=== PATIENT | female | born 1930 | race Caucasian/White ===

== ENCOUNTER 2016-11-26 10:15 | Inpatient (IN) ==
--- NOTE | 2016-11-26 08:09 | Discharge Summary ---
<Sancho,Nhi E - Last Filed: 11/26/16 10:06> Date of Encounter: 11/26/16 - Discharge Diagnosis (1) Arthritis of right hip Priority: Primary Status: Acute (2) Hyperlipidemia Priority: Secondary Status: Acute Qualifiers: Hyperlipidemia type: unspecified Qualified Code(s): E78.5 - Hyperlipidemia , unspecified - Discharge Medications Home Medications: Acetaminophen [Tylenol] 325 mg PO Q6HR PRN 11/26/16 [History] Aspirin Enteric Coated [Aspirin EC] 325 mg PO DAILY #21 tablet.dr 11/26/16 [Rx] Calcium Carbonate [Calcium] 600 mg PO DAILY 11/26/16 [History] Docusate Sodium [Colace] 100 mg PO DAILY PRN 11/26/16 [History] Lactobacillus Combination No.8 [Adult Probiotic] 1 cap PO DAILY 11/26/16 [ History] OxyCODONE Immed Rel [Roxicodone 5 MG] 5 - 10 mg PO Q6HR PRN #40 tablet 11/26/16 [Rx] Ubidecarenone/Vit E Acetate [Co Q-10 100 mg Softgel] 1 each PO DAILY 11/26/16 [ History] Vitamin E Acid Succinate [Vitamin E] 400 units PO DAILY 11/26/16 [History] Allergies/Adverse Reactions: Allergies Penicillins [PCN] Allergy (Verified 08/30/16 15:01) Rash Tetanus Vaccines and Toxoid Allergy (Verified 08/30/16 15:01) Anaphylaxis Primary care physician: Patrick Clarke Jr, MD - Patient Status Disposition: Transfer Inpatient Rehab Fac Condition: Good - Discharge Instructions Follow Up With: Santos Jefferson MD [Partnered Physician] - 12/26/16 5:20 pm Kristi Robison PAC [Physician Dock Associate] - 12/06/16 9:00 am Patrick Clarke Jr, MD [Primary Care Provider] - - Hospital Course Hospital course: Ms. Biggs is a 86 year old female - Time Spent with Patient Total time spent providing and/or coordinating discharge services: <Kristi Robison - Last Filed: 11/26/16 11:56> Date of Encounter: 11/26/16 - Discharge Diagnosis (1) Arthritis of right hip Status: Acute Primary care physician: Patrick Clarke Jr, MD - Hospital Course Hospital course: Ms. Biggs is a 86 year old female - Time Spent with Patient Total time spent providing and/or coordinating discharge services: <Santos Jefferson Ji - Last Filed: 11/29/16 07:56> Date of Encounter: 11/29/16 Time of Encounter: 07:53 - Discharge Diagnosis (1) Arthritis of right hip Priority: Primary Status: Acute (2) Hyperlipidemia Priority: Secondary Status: Chronic Qualifiers: Hyperlipidemia type: unspecified Qualified Code(s): E78.5 - Hyperlipidemia , unspecified (3) Acute blood loss anemia Priority: Primary Status: Acute (4) Atrial fibrillation with rapid ventricular response Priority: Primary Status: Acute Primary care physician: Patrick Clarke Jr, MD - Patient Status Functional capacity at discharge: uses cane/walker Overall status at discharge: patient is progressing back to baseline - Hospital Course Hospital course: Ms. Biggs is a 86 year old female The patient had a postoperative course complicated by new onset atrial fibrillation with RVR, patient responded to cardizem drip and is now on Cardizem by mouth.. They received antibiotics and physical therapy and were discharged in stable condition. There will follow-up in the office in 2 weeks. Aspirin DVT prophylaxis. - Time Spent with Patient Total time spent providing and/or coordinating discharge services:
[2016-11-26] MEDS ORDERED: Clindamycin 900 MG/50 ML 900 MG/50 ML IV.SOLN IVPB ONE (10:39)
[2016-11-26] MEDS ORDERED: Lidocaine -MPF 1% 2 ML VIAL ID ONE (10:39)
[2016-11-26] MEDS ORDERED: Ringers Solution, Lactated 1,000 ML IVC SCH (10:45)
--- NOTE | 2016-11-26 11:05 | Anesthesia Evaluation PreOp ---
Date of Encounter: 11/26/16 Time of Encounter: 11:02 - Past History Planned Operation: r lakeisha Cardiac History: Hyperlipidemia Pulmonary History: Denies Any Significant HX FASHION ILLUSTRATOR History: Denies Any Significant HX Other Medical History: Thyroid (goiter) Anesthesia History: No Prior Anesthetic Complications, Past Anesthesia ( cholecyst) Alcohol Use: none Drug use: none Medications and Allergies Acetaminophen [Tylenol] 325 mg PO Q6HR PRN 11/26/16 [History] Aspirin Enteric Coated [Aspirin EC] 325 mg PO DAILY #21 tablet.dr 11/26/16 [Rx] Aspirin [Lo-Dose Aspirin EC] 81 mg PO DAILY 11/26/16 [History] Calcium Carbonate [Calcium] 600 mg PO DAILY 11/26/16 [History] Docusate Sodium [Colace] 100 mg PO DAILY PRN 11/26/16 [History] Lactobacillus Combination No.8 [Adult Probiotic] 1 cap PO DAILY 11/26/16 [ History] OxyCODONE Immed Rel [Roxicodone 5 MG] 5 - 10 mg PO Q6HR PRN #40 tablet 11/26/16 [Rx] Ubidecarenone/Vit E Acetate [Co Q-10 100 mg Softgel] 1 each PO DAILY 11/26/16 [ History] Vitamin E Acid Succinate [Vitamin E] 400 units PO DAILY 11/26/16 [History] Allergies Penicillins [PCN] Allergy (Verified 08/30/16 15:01) Rash Tetanus Vaccines and Toxoid Allergy (Verified 08/30/16 15:01) Anaphylaxis - Meds/Allergy Pre-op Review Medications Reviewed: Yes Allergies Reviewed: Yes Beta Blockers on Current Med List: No Anesthesia Results - Labs Laboratory Tests 11/12/16 11/12/16 11/12/16 15:16 15:16 15:16 Hgb 13.3 Hct 41.9 Plt Count 201 PT 10.5 INR 1.0 APTT 27.5 Sodium 140 Potassium 4.2 Creatinine 0.90 - Imaging EKG: pending Anesthesia Exam Vital Signs/O2 Sat/Glucose, Most Current Temp Pulse Resp BP Pulse Ox 11/26/16 10:46 98.4 F 81 18 155/90 97 O2 Sat Height 1.57 m Height 1.57 m Height 1.57 m Weight 78.018 kg Weight 78.018 kg Weight 78.018 kg O2 Sat by Pulse Oximetry 97 Vital Signs Temp Pulse Resp BP Pulse Ox 98.4 F 81 18 155/90 97 11/26/16 10:46 11/26/16 10:46 11/26/16 10:46 11/26/16 10:46 11/26/16 10:46 Height: 1.57 Weight: 78 NPO (# of Hours): >8 - HEENT Pupil (Motor): Pupils equal, EOMI Mallampati: II Teeth: Edentulous, Poor dentition Oral Opening: Greater than 3 - FASHION ILLUSTRATOR LOC: Oriented FASHION ILLUSTRATOR Motor: Normal RUE, Normal LUE, Normal RLE, Normal LLE, Normal Face FASHION ILLUSTRATOR Sensory: Normal: RUE, LUE, RLE, LLE, Face - Cardiac Rhythm: Regular Murmur: None - Pulmonary Breath Sounds: bilateral Clear Respiratory Effort: Symmetrical Anesthesia Assess/Plan ASA Score: 3 Modified Lolita Scale for Level of Consciousness: Cooperative, oriented, and tranquil Anesthetic Plan: General Monitoring Plan: Standard Monitors Recovery Plan: PACU
[2016-11-26] MEDS ORDERED: *HR* Midazolam HCl 2 MG/2 ML VIAL ONE (11:36)
[2016-11-26] MEDS ORDERED: *HR* FentaNYL (PF) 100 MCG/2 ML VIAL ONE (11:36)
[2016-11-26] MEDS ORDERED: *HR* Propofol 200 MG/20 ML VIAL IVP ONE (11:36)
[2016-11-26] MEDS ORDERED: Lidocaine -MPF 2% 2 ML VIAL ONE (11:38)
[2016-11-26] MEDS ORDERED: Ondansetron 4 MG/2 ML VIAL ONE (11:38)
[2016-11-26] MEDS ORDERED: Dexamethasone 4 MG/ML VIAL ONE (11:38)
[2016-11-26] MEDS ORDERED: *HR* HYDROmorphone (PF) 1 MG/ML SYRINGE IVP PRN ×2 (11:41→14:47)
[2016-11-26] MEDS ORDERED: Ondansetron 4 MG/2 ML VIAL IVP PRN ×2 (11:41→14:47)
[2016-11-26] MEDS ORDERED: *HR* Succinylcholine 200 MG/10 ML VIAL IVP ONE (11:43)
--- NOTE | 2016-11-26 12:15 | History & Physical Report ---
Date of Encounter: 11/26/16 Time of Encounter: 12:15 24 Hour HP Update - Instructions Instructions: If the History and Physical is less than 30 days old and was completed prior to A.M. admission and or procedure and has NOT been updated on calendar day of procedure please complete this update prior to performing procedure. - Update Patient reports changes in Medical Condition: No Changes in examination, assessment, or condition: No Changes in Medication: No Preop tests/diagnostics Reviewed: Yes Surgery Remains Indicated: Yes Consent for Planned Operative Procedure(s) Verified: Yes - Pre-Operative Checklist Preoperative Checklist Indicated: No Prophylactic Antibiotic Ordered: Yes Is VTE Prophylaxis Indicated?: Yes
--- NOTE | 2016-11-26 13:43 | Orthopedic Operative Note ---
Date of procedure: 11/26/16 Pre-op diagnosis: right hip OA Post-op diagnosis: same Procedure: Procedure: right Total Hip Replacment Estimated blood loss: 200 cc Hardware: Biomet DM Cup: 54 G7 fin cup Femoral size 12 echo full profile lateralized stem Head: +3 head with Lesvia Procedural Notes: Grade 4 arthritic changes femoral head acetabular socket Operative procedure: The patient was brought to the operating room and placed on the operating room table. After general anesthesia was administered the patient was placed in the lateral decubitus position with the operative leg up. All pressure points were padded appropriately and the head was stabilized in the neutral position. The operative extremity was prepped and draped in the sterile surgical fashion patient received IV antibiotic prior to skin incision. A standard posterior approach is made to the operative hip, the incision was made through the skin and subcutaneous tissue hemostasis was obtained with Bovie cautery. Using careful sharp dissection the fascia was identified and incised exposing the external rotators. The external rotators were released off the greater trochanter and tagged with #2 FiberWire suture. The capsule was T'd open and the hip was brought into internal rotation. Patient noted to have grade 4 arthritic changes femoral head. The femoral neck cut was made at the appropriate level. An anterior capsulotomy was performed for the anterior retractor. Soft tissues removed from the acetabulum. Patient noted to have grade 4 arthritic changes acetabulum. Acetabulum was first reamed medially, and then reamed in 15 degrees of anteversion and 45 degrees off the horizontal. It was reamed up to the appropriate size 54. The appropriate-sized 54 acetabular cup was impacted in place in 15 degrees of anteversion and 45 degrees off the horizontal. This had good fit and fixation. The hip was brought back in to internal rotation and prepared with the box attacher followed by the canal finder followed by broaching process in 20 degrees anteversion. It was broached up to the appropriate size 12. The femoral implant was impacted in place in 20 degrees of anteversion. Trial reduction found the hip to be stable with +3 head and Lesvia. The trials were removed and the real implants were impacted in place. The hip was reduced, patient had apparent equal leg lengths. The hip had excellent stability with forward flexion to 90 degrees adduction of 30 degrees and internal rotation of 60 degrees. The hip had no shuck. The hips after 2 minutes with a Betadine saline solution. It was irrigated out with 2 L of pulse irrigation. The external rotators were reattached to drill holes in the greater trochanter. Fascia was closed with a running #2 PDS suture. The deep tissue was irrigated and closed deep with #1 PDS suture superficially with 0 PDS suture and skin was closed with Dermabond and skin kaylynn. The patient was placed in a sterile dressing and abduction pillow. The patient was extubated and transferred to the recovery room in stable condition. Anesthesia: GEOFFREY Surgeon: Santos Jefferson Quality Engineering Manager: Kristi Robison Condition: stable Disposition: PACU
[2016-11-26] MEDS ORDERED: *HR* HYDROmorphone (PF) 1 MG/ML SYRINGE ONE (14:12)
[2016-11-26] MEDS ORDERED: *HR* OxyCODONE Immed Rel 5 MG TABLET PO PRN (14:47)
[2016-11-26] MEDS ORDERED: Sennosides 8.6 MG TABLET PO PRN (14:47)
[2016-11-26] MEDS ORDERED: MOM Conc 10 ML UD.LIQ PO PRN (14:47)
[2016-11-26] MEDS ORDERED: Temazepam 15 MG CAPSULE PO PRN (14:47)
[2016-11-26] MEDS ORDERED: Naloxone 0.4 MG/ML INJ IVP PRN (14:47)
--- NOTE | 2016-11-26 15:05 | Anesthesia Evaluation Post Op ---
Date of Encounter: 11/26/16 Time of Encounter: 14:45 - Vital Signs Vital Signs: Vital Signs/O2 Sat/Glucose, Most Current Temp Pulse Resp BP Pulse Ox 11/26/16 14:57 97.7 F 67 14 160/80 97 11/26/16 14:52 97.1 F L 67 16 154/78 99 11/26/16 14:42 64 16 154/84 99 11/26/16 14:32 97.3 F L 81 16 144/87 100 11/26/16 14:22 77 16 145/90 99 11/26/16 14:12 65 16 141/92 98 11/26/16 14:02 97.0 F L 64 16 130/83 99 - Lungs Lungs: Clear Ascult./Percussion - Airway Airway: Non-obstructed - Cardiovascular Regular Rate - Mental Status Mental Status: Alert & Oriented, Answers Appropriately - Pain Pain Scale: 5 Pain Scale used: Numeric (1 - 10) - Nausea Vomiting Nausea Vomiting: Not Present - Hydration Hydration: Ice chips, Has not voided - Discharge PostOp Status: Transfer Patient to floor Anes Supervising Prov Stmt: Pt seen/evaluated, vSS and pt has met criteria for discharge to home. - MD Barry
[2016-11-26 15:13] LABS: Hematocrit 34.2 % (35.3-44.9); Hemoglobin 11.4 g/dL (11.5-15.4)
[2016-11-26] MEDS: *HR* OxyCODONE Immed Rel 5 MG TABLET PO PRN (15:22)
[2016-11-26] MEDS: Ringers Solution, Lactated 1,000 ML IVC SCH (15:22)
[2016-11-26] MEDS: Ascorbic Acid 500 MG TABLET PO SCH (16:53)
[2016-11-26] MEDS ORDERED: *HR* Enoxaparin 30 MG/0.3 ML SYRINGE SQ SCH (18:00)
[2016-11-26] MEDS: Clindamycin 900 MG/50 ML 900 MG/50 ML IV.SOLN IVPB SCH ×2 (18:17→23:07)
[2016-11-26] MEDS: *HR* Enoxaparin 30 MG/0.3 ML SYRINGE SQ SCH (18:18)
[2016-11-27] MEDS: Ringers Solution, Lactated 1,000 ML IVC SCH (03:05)
[2016-11-27] MEDS: *HR* OxyCODONE Immed Rel 5 MG TABLET PO PRN ×4 (03:14→17:07)
[2016-11-27] MEDS: *HR* Enoxaparin 30 MG/0.3 ML SYRINGE SQ SCH ×2 (05:09→17:07)
[2016-11-27 05:45] LABS: Hematocrit 29.8 % (35.3-44.9)
[2016-11-27 05:49] LABS: Hemoglobin 9.7 g/dL (11.5-15.4)
[2016-11-27 06:00] LABS: BUN/Creatinine Ratio 14 (6-26); Blood Urea Nitrogen 14 mg/dL (7-20); Calcium 7.9 mg/dL (8.6-10.8); Carbon Dioxide 25 mEq/L (19-29); Chloride 105 mEq/L (98-109); Glucose 119 mg/dL (70-99); Osmolality,Calculated 288 (280-300); Potassium 3.7 mEq/L (3.5-4.5); Sodium 138 mEq/L (136-145); eGFR For African Americans > 60 (> 60); eGFR For Non-African Americans 55 (> 60)
--- NOTE | 2016-11-27 06:35 | Electrocardiograph Report ---
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
--- NOTE | 2016-11-27 06:44 | Orthopedics Progress Note ---
Date of Encounter: 11/27/16 Time of Encounter: 06:44 - Assessment and Plan (1) Arthritis of right hip Current Visit: Yes Status: Acute (2) Hyperlipidemia Current Visit: Yes Status: Chronic Qualifiers: Hyperlipidemia type: unspecified Qualified Code(s): E78.5 - Hyperlipidemia , unspecified (3) Acute blood loss anemia Current Visit: Yes Status: Acute Subjective Interval history: Patient was seen this morning doing well without complaints. Afebrile vital signs stable. Operative extremity: Neurovascularly intact Dressing clean dry and intact Calves nontender Assessment and plan: Continue with postoperative care Hematocrit 29 Objective Vital signs: Vital Signs Temp Pulse Resp BP Pulse Ox 11/27/16 04:49 98.0 F 70 16 118/80 99 11/26/16 23:43 98.4 F 73 16 118/83 99 11/26/16 19:21 98.2 F 72 16 119/77 99 11/26/16 18:10 98.6 F 96 16 107/74 98 11/26/16 17:34 87 16 146/89 99 11/26/16 16:53 98.2 F 87 16 146/89 99 11/26/16 16:08 98.5 F 70 16 154/79 93 11/26/16 15:31 98.5 F 72 16 153/78 96 11/26/16 14:57 97.7 F 67 14 160/80 97 11/26/16 14:52 97.1 F L 67 16 154/78 99 11/26/16 14:42 64 16 154/84 99 11/26/16 14:32 97.3 F L 81 16 144/87 100 11/26/16 14:22 77 16 145/90 99 11/26/16 14:12 65 16 141/92 98 11/26/16 14:02 97.0 F L 64 16 130/83 99 11/26/16 10:46 98.4 F 81 18 155/90 97 Intake and Output 11/26/16 11/26/16 11/27/16 15:59 23:59 07:59 Intake Total 590 / 590 300 / 300 Output Total 300 / 300 450 / 450 Balance -300 / -300 140 / 140 300 / 300 Intake: IV Fluids 50 / 50 50 / 50 Cleocin 900 MG/50 ML 900 50 / 50 50 / 50 mg In 50 ml @ 50 mls/hr IVPB Q8HR KAREN Rx#: [id number] Oral 540 / 540 250 / 250 Output: Urine 450 / 450 Estimated Blood Loss 300 / 300 Other: Meal Dinner Percent of Meal Consumed 80% # Voids 1 Weight 78.018 kg - Labs CBC & BMP: 11/27/16 05:15 11/27/16 05:15 Labs: Abnormal lab results Hgb 9.7 g/dL (11.5-15.4) L D 11/27/16 05:15 Hct 29.8 % (35.3-44.9) L 11/27/16 05:15 Est GFR (Non-Af Amer) 55 (> 60) L 11/27/16 05:15 Glucose 119 mg/dL (70-99) H 11/27/16 05:15 Calcium 7.9 mg/dL (8.6-10.8) L 11/27/16 05:15 - VTE Documentation of Mechanical Device: Venous foot pump, device Consult Discharge Plan - Plan Referrals: Patrick Clarke Jr, MD [Primary Care Provider] -
[2016-11-27] MEDS: Ascorbic Acid 500 MG TABLET PO SCH ×2 (09:00→17:07)
[2016-11-27] MEDS: Multivit/Ca/Min/Fe/FA 1 TAB TABLET PO SCH (09:00)
[2016-11-27] MEDS: Lactobacillus 1 EACH CAP.SPRINK PO SCH (09:01)
--- NOTE | 2016-11-28 02:24 | Internal Medicine Consult Note ---
Date of Encounter: 11/28/16 Time of Encounter: 01:00 - Assessment and Plan (1) Atrial fibrillation with rapid ventricular response Current Visit: Yes Status: Acute Assessment and plan: Patient has tachycardia with heart rate to 170s. traffic monitor specialist and EKG shows A. fib with rapid ventricular response. - New onset A. fib, no significant history of heart disease. - BP is acceptable. We will start Cardizem 10 milligrams bolus followed by Cardizem drip. Titrate to control heart rate lower than 100. - Vitals every 15 minutes, continuous cardiac monitoring. - CHADS2-VASC score 3 (Age 3, female 1), will place aspirin for now. Cardio consult for further management. - Check TSH and magnesium. - Cardiac consult for new onset A. fib. Patient is at high risk because she is on Cardizem drip, need close monitoring (2) DVT prophylaxis Current Visit: Yes Status: Acute Assessment and plan: On lovenox sc per orthopedic (3) Arthritis of right hip Current Visit: Yes Status: Acute Assessment and plan: Had hip replacement. (4) Hyperlipidemia Current Visit: Yes Status: Chronic Assessment and plan: On Diet control Qualifiers: Hyperlipidemia type: unspecified Qualified Code(s): E78.5 - Hyperlipidemia , unspecified (5) Acute blood loss anemia Current Visit: Yes Status: Acute Assessment and plan: On iron pills. Internal Medicine - CN: HPI - Data of Consult Patient: new to practice Consult date: 11/28/16 Requesting Physician: Santos Jefferson MD - Consult Narrative Reason for consult: Tachycardia History of present illness: Ms. Biggs is a 86 year old female admitted for arthritis for right hip replacement. Patient had a surgery by orthopedic on Saturday. Internal medicine consult was called because patient developed tachycardia tonight. Patient was seen and examined at bedside. She denies palpitation, chest pain, shortness of breath. She has no nausea or vomiting. Reviewed the cardiac tech and EKG shows A. fib with rapid ventricular response. Patient has no history of A. fib before. She denies history of hypertension, diabetes, CAD, CVA, or TIA. She takes only baby aspirin and vitamins at home. Past Med Surg Social Fam HX - Past Medical History Medical history: non-contributory, hyperlipidemia Psychiatric history: no psych history - Past Surgical History Surgical History: cholecystectomy - Social History Smoking Status: Former smoker Smokeless Tobacco Status: No Alcohol use: none Drug use: none Internal Medicine - CN: Meds Acetaminophen [Tylenol] 325 mg PO Q6HR PRN 11/26/16 [History] Aspirin Enteric Coated [Aspirin EC] 325 mg PO DAILY #21 tablet. 11/26/16 [Rx] Calcium Carbonate [Calcium] 600 mg PO DAILY 11/26/16 [History] Docusate Sodium [Colace] 100 mg PO DAILY PRN 11/26/16 [History] Lactobacillus Combination No.8 [Adult Probiotic] 1 cap PO DAILY 11/26/16 [ History] OxyCODONE Immed Rel [Roxicodone 5 MG] 5 - 10 mg PO Q6HR PRN #40 tablet 11/26/16 [Rx] Ubidecarenone/Vit E Acetate [Co Q-10 100 mg Softgel] 1 each PO DAILY 11/26/16 [ History] Vitamin E Acid Succinate [Vitamin E] 400 units PO DAILY 11/26/16 [History] Allergies Penicillins [PCN] Allergy (Verified 08/30/16 15:01) Rash Tetanus Vaccines and Toxoid Allergy (Verified 08/30/16 15:01) Anaphylaxis Internal Medicine - CN: Exam - Constitutional Vitals: Temp Pulse Resp BP Pulse Ox 100.6 F H 122 16 76/52 99 11/28/16 02:15 11/28/16 02:15 11/28/16 02:15 11/28/16 02:15 11/28/16 02:15 General appearance IM: Present: A&O X 3, no acute distress, answers questions appropriately - Head Head exam: Present: atraumatic, normocephalic - Eye Eye exam: Present: EOMI, PERRL - Neck Neck exam general surgery: Present: full ROM, supple - Respiratory Respiratory exam: Present: CTAB - Cardiovascular Cardiovascular exam IM: Present: irregular rhythm, tachycardia - GI/Abdominal GI/Abdominal exam IM: Present: soft. Absent: tenderness - Extremities Exam Extremities exam IM: Absent: pedal edema - Neurological Exam Neurological exam: Present: alert, altered, oriented X3. Absent: no focal deficits Internal Medicine - CN: Reslt - Labs CBC & Chem 7: 11/27/16 05:15 11/27/16 05:15 Labs: Short CBC 11/27/16 Range/Units 05:15 Hgb 9.7 L D (11.5-15.4) g/dL Hct 29.8 L (35.3-44.9) % BMP 11/27/16 05:15 Sodium 138 Potassium 3.7 Chloride 105 Carbon Dioxide 25 BUN 14 Creatinine 0.97 Glucose 119 H Calcium 7.9 L Consult Discharge Plan - Plan Referrals: Patrick Clarke Jr, MD [Primary Care Provider] -
[2016-11-28] MEDS ORDERED: 0.9 % Sodium Chloride 500 ML IVC ONE (02:39)
[2016-11-28 04:05] LABS: Eosinophils % 0.3 %; Hematocrit 26.5 % (35.3-44.9); Hemoglobin 8.5 g/dL (11.5-15.4); Immature Granulocytes % 0.5 % (0-4); Lymphocytes # 1.7 K/mcL (0.6-4.6); Lymphocytes % 25.8 %; Mean Corpuscular HGB Conc 32.1 g/dL (31.6-35.5); Mean Corpuscular Hemoglobin 30.9 pg (28.0-33.3); Mean Corpuscular Volume 96.4 fL (83.0-100.0); Mean Platelet Volume 9.4 fL (9.4-12.4); Monocytes # 0.8 K/mcL (0.0-1.3); Monocytes % 12.1 %; Platelet Count 147 K/mcL (140-400); Red Blood Count 2.75 M/mcL (3.82-4.97); Red Cell Distribution Width 13.8 % (11.5-14.5); Segmented Neutrophils % 61.3 %
[2016-11-28 04:15] LABS: Calcium 8.1 mg/dL (8.6-10.8); Magnesium 1.4 mg/dL (1.6-2.6); Potassium 3.4 mEq/L (3.5-4.5)
[2016-11-28 04:37] LABS: Thyroid Stimulating Hormone 0.749 mcIU/mL (0.350-4.840)
[2016-11-28] MEDS: *HR* Enoxaparin 30 MG/0.3 ML SYRINGE SQ SCH ×2 (05:01→17:18)
[2016-11-28] MEDS ORDERED: Furosemide 20 MG/2 ML VIAL IVP ONE (05:59)
[2016-11-28] MEDS: Lactobacillus 1 EACH CAP.SPRINK PO SCH (07:32)
[2016-11-28] MEDS: Ascorbic Acid 500 MG TABLET PO SCH ×2 (07:32→17:18)
[2016-11-28] MEDS: Aspirin Enteric Coated 81 MG Tablet PO SCH (07:33)
[2016-11-28] MEDS: Multivit/Ca/Min/Fe/FA 1 TAB TABLET PO SCH (07:33)
--- NOTE | 2016-11-28 07:59 | Orthopedics Progress Note ---
Date of Encounter: 11/28/16 Time of Encounter: 07:58 - Assessment and Plan (1) Arthritis of right hip Current Visit: Yes Status: Acute (2) Hyperlipidemia Current Visit: Yes Status: Chronic Qualifiers: Hyperlipidemia type: unspecified Qualified Code(s): E78.5 - Hyperlipidemia , unspecified (3) Acute blood loss anemia Current Visit: Yes Status: Acute (4) Atrial fibrillation with rapid ventricular response Current Visit: Yes Status: Acute Subjective Interval history: Patient was seen this morning doing well without complaints. Patient with atrial fibrillation and RVR overnight asymptomatic being treated by medical team Afebrile vital signs stable. Operative extremity: Neurovascularly intact Dressing clean dry and intact Calves nontender Assessment and plan: Continue with postoperative care Hematocrit 26 transfuse 2 units Objective Vital signs: Vital Signs Temp Pulse Resp BP Pulse Ox 11/28/16 07:45 120 13 105/70 94 11/28/16 07:30 129 11 93/65 94 11/28/16 07:15 99.1 F 105 10 95/64 95 11/28/16 07:00 99.9 F H 108 14 104/68 96 11/28/16 06:45 99.9 F H 112 14 103/68 95 11/28/16 06:30 99.4 F 130 12 93/66 97 11/28/16 06:15 99.4 F 116 14 95/70 96 11/28/16 06:00 99.3 F 123 14 100/62 98 11/28/16 05:53 96 11/28/16 05:45 100 F H 117 15 95/59 96 11/28/16 05:30 100.2 F H 125 14 106/67 97 11/28/16 05:15 100.2 F H 131 14 103/66 96 11/28/16 04:57 100.1 F H 111 14 104/68 97 11/28/16 04:45 100.1 F H 115 15 96/62 97 11/28/16 04:30 100 F H 108 14 97/65 96 11/28/16 04:15 99.9 F H 104 14 101/63 96 11/28/16 04:00 100 F H 134 14 98/60 95 11/28/16 03:45 100 F H 124 15 96/62 96 11/28/16 03:30 99.8 F H 139 16 94/59 95 11/28/16 03:15 99.5 F 120 15 94/62 95 11/28/16 03:00 100.5 F H 125 16 89/55 98 11/28/16 02:45 100.4 F H 133 14 91/59 94 11/28/16 02:30 100.5 F H 141 15 96/63 97 11/28/16 02:15 100.6 F H 122 16 76/52 99 11/28/16 02:00 100.6 F H 142 14 96/61 94 11/28/16 01:45 101 F H 135 16 86/55 94 11/28/16 00:34 100.2 F H 16 123/66 92 11/27/16 20:00 97/67 11/27/16 19:18 98.8 F 88 15 94/56 93 11/27/16 19:00 93 11/27/16 14:55 98.1 F 80 16 104/68 93 11/27/16 11:30 98.0 F 76 16 99/64 95 Intake and Output 11/27/16 11/27/16 11/28/16 15:59 23:59 07:59 Intake Total 200 / 200 700 / 700 244.2 / 244.2 Balance 200 / 200 700 / 700 244.2 / 244.2 Intake: IV Fluids 4.2 / 4.2 Cardizem 125 MG In 4.2 / 4.2 Dextrose 5% 100 ML @ 5 MG /HR 5 mls/hr IVC .Q24H [facility] Rx#:[id number] Oral 200 / 200 700 / 700 240 / 240 Other: Meal Breakfast Dinner Percent of Meal Consumed 50% 100% - Labs CBC & BMP: 11/28/16 03:47 11/28/16 03:47 Labs: Abnormal lab results RBC 2.75 M/mcL (3.82-4.97) L 11/28/16 03:47 Hgb 8.5 g/dL (11.5-15.4) L 11/28/16 03:47 Hct 26.5 % (35.3-44.9) L 11/28/16 03:47 Sodium 134 mEq/L (136-145) L 11/28/16 03:47 Potassium 3.4 mEq/L (3.5-4.5) L 11/28/16 03:47 BUN 21 mg/dL (7-20) H 11/28/16 03:47 Creatinine 1.39 mg/dL (0.57-1.11) H 11/28/16 03:47 Est GFR ( Amer) 44 (> 60) L 11/28/16 03:47 Est GFR (Non-Af Amer) 36 (> 60) L 11/28/16 03:47 Glucose 128 mg/dL (70-99) H 11/28/16 03:47 Calcium 8.1 mg/dL (8.6-10.8) L 11/28/16 03:47 Magnesium 1.4 mg/dL (1.6-2.6) L 11/28/16 03:47 - VTE Documentation of Mechanical Device: Venous foot pump, device Consult Discharge Plan - Plan Referrals: Patrick Clarke Jr, MD [Primary Care Provider] -
[2016-11-28] MEDS ORDERED: Potassium Chloride Elixir 20 MEQ/15 ML UDC PO ONE (08:15)
[2016-11-28] MEDS ORDERED: Magnesium Sulfate 2 GM in D5% in Water 100 ML IVPB ONE (08:15)
[2016-11-28] MEDS ORDERED: 0.9 % Sodium Chloride 1,000 ML IVC SCH (08:15)
--- NOTE | 2016-11-28 09:46 | Cardiology Consult Note ---
<Hilario Franco Dorothy - Last Filed: 11/28/16 12:33> Date of Encounter: 11/28/16 Time of Encounter: 09:45 Assessment and Plan (1) Acute blood loss anemia Current Visit: Yes Status: Acute Hgb of 8.5 this AM after surgery 2 days ago Patient is being transfused at this time by primary team (2) Atrial fibrillation with rapid ventricular response Current Visit: Yes Status: Acute New onset Afib RVR at approx midnight on morning of 11/28 in the setting of acute blood loss anemia and fever and mild electrolyte abnormalities Patient BP unable to tolerate cardizem at rate of 5mg/hr BP initially unable to tolerate cardizem drip, oral metoprolol 12.5 given. Potassium level mildly decreased and is being supplemented Magnesium level of 1.4 and supplementation is ordered [id number] score of 3 (age +2, sex +1), no current anticoagulation due to recent surgery Echocardiogram has been ordered Will give further recommendations after echo As the patient's BP is unable to tolerate cardizem, recommend lopressor IV PRN, will place orders with parameters Discussion w patient/family: The assessment and plan as outlined above was discussed with the patient and/or family members who expressed understanding and agreement. All questions were answered. Thank you for involving us in the care of your patient. Please call with any questions. History of Present Illness Consult date: 11/28/16 Consult reason: Afib RVR Chief complaint: No patient complaints History of present illness: Ms. Biggs is a 86 year old female who had a total hip replacement on Saturday. Last night at about midnight she developed a fever with tachycardia and was found to be in a-fib RVR. The patient was asymptomatic during this. Her BP did fall into the 80's at times. She was initially started on a cardizem drip and was rate controlled but her BP began to fall and was 87/55 so the cardizem drip at 5mg/hr was held and she was given metoprolol 12.5 PO once. She denies having and CP, dyspnea, or dizziness. She was been getting up with physical therapy (but has not yet today). She denies any cardiac history and denies any heart caths. She has been progressively anemic post operatively. She denies having any symptoms. Past Med Surg Social Fam HX - Past Medical History Medical history: non-contributory, hyperlipidemia Psychiatric history: no psych history - Past Surgical History Surgical History: cholecystectomy - Social History Smoking Status: Former smoker Smokeless Tobacco Status: No Alcohol use: none Drug use: none Medications and Allergies Acetaminophen [Tylenol] 325 mg PO Q6HR PRN 11/26/16 [History] Aspirin Enteric Coated [Aspirin EC] 325 mg PO DAILY #21 tablet.dr 11/26/16 [Rx] Calcium Carbonate [Calcium] 600 mg PO DAILY 11/26/16 [History] Docusate Sodium [Colace] 100 mg PO DAILY PRN 11/26/16 [History] Lactobacillus Combination No.8 [Adult Probiotic] 1 cap PO DAILY 11/26/16 [ History] OxyCODONE Immed Rel [Roxicodone 5 MG] 5 - 10 mg PO Q6HR PRN #40 tablet 11/26/16 [Rx] Ubidecarenone/Vit E Acetate [Co Q-10 100 mg Softgel] 1 each PO DAILY 11/26/16 [ History] Vitamin E Acid Succinate [Vitamin E] 400 units PO DAILY 11/26/16 [History] Allergies Penicillins [PCN] Allergy (Verified 08/30/16 15:01) Rash Tetanus Vaccines and Toxoid Allergy (Verified 08/30/16 15:01) Anaphylaxis All Systems Review: A 10-system review of systems was performed and is negative for pertinent findings except as documented above in the HPI. - Constitutional Constitutional: no weakness - EENT Eyes: no loss of vision - Cardiovascular Cardiovascular: no chest pain at rest, no chest pain with exertion, no syncope - Respiratory Respiratory: no cough - Gastrointestinal Gastrointestinal: no abdominal pain - Musculoskeletal Musculoskeletal: no back pain - Integumentary Integumentary: no rash - Neurological Neurological: no syncope Physical Examination Vital Signs, Last 4 Hours Temp Pulse Resp BP Pulse Ox 11/28/16 09:00 119 14 87/55 97 11/28/16 08:45 97 10 87/58 95 11/28/16 08:30 78 93/57 11/28/16 08:15 80 98/64 11/28/16 07:45 120 13 105/70 94 11/28/16 07:30 129 11 93/65 94 11/28/16 07:15 99.1 F 105 10 95/64 95 11/28/16 07:00 99.9 F H 108 14 104/68 96 11/28/16 06:45 99.9 F H 112 14 103/68 95 11/28/16 06:30 99.4 F 130 12 93/66 97 11/28/16 06:15 99.4 F 116 14 95/70 96 11/28/16 06:00 99.3 F 123 14 100/62 98 11/28/16 05:53 96 11/28/16 05:45 100 F H 117 15 95/59 96 General: Conversant HEENT: Atraumatic Neck: No JVD Cardiac: Other (Tachycardia with irregular rhythm) Lungs: Normal Breath Sounds, No Wheeze, Rales, Rhonchi Neuro: Alert and responsive Abdomen: Soft Extremities: Normal Pulses, Other (RLE has mild edema which is expected after total hip) Results 11/28/16 03:47 11/28/16 03:47 Lab Results 11/28/16 11/28/16 03:47 03:47 WBC 6.5 Hgb 8.5 L Hct 26.5 L Plt Count 147 Sodium 134 L Potassium 3.4 L Chloride 100 Carbon Dioxide 28 BUN 21 H Creatinine 1.39 H Glucose 128 H Calcium 8.1 L Magnesium 1.4 L TSH 0.749 Consult Discharge Plan - Plan Referrals: Santos Jefferson MD [Partnered Physician] - 12/26/16 5:20 pm Kristi Robison, PAC [Physician Parking Lot Spotter] - 12/06/16 9:00 am Patrick Clarke Jr, MD [Primary Care Provider] - <Cat Lopez - Last Filed: 11/28/16 16:19> Date of Encounter: 11/28/16 Assessment and Plan Discussion w patient/family: The assessment and plan as outlined above was discussed with the patient and/or family members who expressed understanding and agreement. All questions were answered. Thank you for involving us in the care of your patient. Please call with any questions. History of Present Illness History of present illness: Ms. Biggs is a 86 year old female All Systems Review: A 10-system review of systems was performed and is negative for pertinent findings except as documented above in the HPI. Physical Examination Vital Signs, Last 4 Hours Temp Pulse Resp BP Pulse Ox 11/28/16 15:30 98.3 F 86 14 112/70 97 11/28/16 12:53 98.3 F 75 15 98/59 97 Results 11/28/16 03:47 11/28/16 03:47 Lab Results 11/28/16 11/28/16 03:47 03:47 WBC 6.5 Hgb 8.5 L Hct 26.5 L Plt Count 147 Sodium 134 L Potassium 3.4 L Chloride 100 Carbon Dioxide 28 BUN 21 H Creatinine 1.39 H Glucose 128 H Calcium 8.1 L Magnesium 1.4 L TSH 0.749 - Attending Attestation I examined this patient and my medical decision-making was reviewed with the COUNSELOR AT LAW/PA/Advanced Practice Nurse/Resident Physician. I agree with the documented findings, disposition and treatment plan. Ms. Biggs developed post operative AF RVR in setting of fever, anemia and electrolyte disturbance. She has been given blood transfusion and heart rates have become much better controlled. Electrolytes have been repleted. We recommend continuing prn dosing of IV metoprolol. If BP allows, would add low dose metoprolol to home regimen, can try Toprol 12.5mg daily. In regards to anticoagulation, given recent surgery and anemia requiring blood transfusion would hold off on a blood thinner until ok by Orthopedic service. In the meantime can consider low dose aspirin prior to discharge as long as ok from a surgical perspective. Her CHADSVASC score is 3 so ideally would require watermelon inspector full anticoagulation which can also be discussed as an outpatient.
[2016-11-28] MEDS ORDERED: 0.9 % Sodium Chloride 250 ML ONE ×2 (10:41→17:58)
[2016-11-28] MEDS ORDERED: *HR* Metoprolol 5 MG/5 ML VIAL IVP PRN (12:35)
--- NOTE | 2016-11-28 14:28 | Electrocardiograph Report ---
[place] [address] Test Date: 2016-11-28 Pat Name: Nancy Biggs Department: 114 Room: [facility] Gender: F Fairground Operator: : 1930 Requested By: Brigida Agustin Order Number: [id number] Reading MD: Srikanth Stearns MD Measurements Intervals [place] Rate: 159 P: RI: 0 QRS: -9 QRSD: 85 T: 22 QT: 244 QTc: 333 Interpretive Statements ATRIAL FIBRILLATION WITH RAPID VENTRICULAR RESPONSE WITH PVC OR ABERRANT CONDUCTION Electronically Signed On 11-28-2016 14:26:33 EDT by Srikanth Stearns MD
--- NOTE | 2016-11-28 15:45 | Event Note ---
Date of Encounter: 11/28/16 Time of Encounter: 15:41 86-year-old female with history of hypertension, admitted after an elective right total hip replacement. Hospitalist service has been consulted when patient developed new onset of atrial fibrillation with rapid ventricular response overnight. Patient is currently asymptomatic and doing well, pain is better controlled. Noted to be in sinus rhythm. Noted to have regular rate and rhythm on auscultation, lungs are clear to auscultation. Labs reviewed, significant for acute blood loss anemia, hemoglobin noted to be 8.5 today, mild renal dysfunction with serum creatinine elevated at 1.39, serum potassium 3.4, serum magnesium 1.4. New onset atrial fibrillation with rapid ventricular response-paroxysmal. Has been started on IV Cardizem drip, discontinued since due to low blood pressure and better heart rate control. Received 1 dose of oral metoprolol 12.5 mg. Heart rate currently well controlled. Will continue beta heather. Cardiology consult appreciated. Follow-up echocardiogram. Patient may not need long-term anticoagulation at this time. Status post total hip replacement- pain control with when necessary oral Percocet. Local wound care and postoperative care per orthopedic surgery. Continue Lovenox for DVT prophylaxis. Physical therapy evaluation recommends placement in extended care facility. automotive services manager on board, anticipate discharge in a.m.
--- NOTE | 2016-11-28 18:33 | ECHO - Doppler Report ---
Echocardiogram Name: Nancy Biggs Date of Study: 11/28/2016 Date: 1930 Ht: 62.0 in Medical Record#: [id number] Age: 86 Wt: 172.0 lb Gender: Female BSA: 1.79 Order #: [id number] Location: [facility] Room #: [facility] Reading Physician: Seun Dexter DO, FACC, GUSTAVO C2 Tactical Analysis Technician: SANJAY MalloryT, [facility] Ordering Physician: Abdi Morris MD Primary Physician: Patrick Clarke MD Indications: Atrial fibrillation Impressions: LVEF 65%. Normal LV chamber size, wall thickness and function. Mild left ventricular diastolic dysfunction. Normal right ventricular structure and function. Mild to moderately dilated left atrium. No evidence of pulmonary hypertension. No significant valvular dysfunction. Left Ventricular Wall Motion: Rest Echo Findings All wall segments showed normal motion. Findings: Study Quality * Technically adequate exam. ECG Findings * Normal sinus rhythm. Left Ventricle * LVEF 65%. * Normal LV chamber size, wall thickness and function. * Mild left ventricular diastolic dysfunction. Right Ventricle * Normal right ventricular structure and function. Left Atrium * Mild to moderately dilated left atrium. Right Atrium * Normal right atrial size. Interatrial Septum * Interatrial septum not well evaluated. Aortic Valve * Trileaflet aortic valve. * Mildly sclerotic aortic valve leaflets. * No aortic regurgitation. * No aortic stenosis. Mitral Valve * Mild mitral annular calcification * Moderately thickened mitral valve leaflets. Focally calcified anterior MV leaflet. * No mitral regurgitation. * No mitral stenosis. Tricuspid Valve * Normal tricuspid valve structure and function. * Trace tricuspid regurgitation. * No evidence of pulmonary hypertension. Pulmonic Valve * Normal pulmonic valve structure and function. * Trace pulmonic regurgitation. Aorta * Normally sized aortic root. Pericardium * The pericardium appears normal. IVC * Normal IVC dimensions and inspiratory collapse. Pulmonary Artery * Normal visualized portions of the main pulmonary artery. History Hypercholesteremia Measurements: BP: 98/ 59 2D Normal Values RVIDd: 3.30 cm <2.7 cm IVSd: 1.20 cm 0.6 - 1.0 cm LVIDd: 3.20 cm 3.7 - 5.6 cm LVPWd: 1.10 cm 0.6 - 1.1 cm LVIDs: 2.40 cm 1.5 - 3.6 cm AO: 3.00 cm < 4.0 cm LA: 5.20 cm 2.0 - 4.0cm %FS: 25.00 cm >25 % LA volume: 72 Mitral Valve Dec Time:285.00 msec Peak E:.98 m/sec Peak A:.86 m/sec E/A Ratio:1.1 Peak E' Lat Ramiro:8.24 cm/s Peak E' Med Ramiro:9.58 cm/s E/E' Lat Ratio:11.9 E/E' Med Ratio:10.3 Tricuspid Valve TV Regurg Peak Grad: 29.00mmHg TV Regurg Peak Ramiro: 2.67m/sec Updated by Seun Dexter DO, FACGonzalez, GUSTAVO, CHING on 11/28/2016 6:27:04 PM electronically signed on 11/28/2016 6:27:36 PM with status of Final Wall Motion Mason: 1=Normal, 2=Hypokinesis, 3=Akinesis, 4=Dyskinesis, 5=Aneurysmal, 6=Hyperkinetic, X=Not Visualized (Blank)=Missing
[2016-11-29 04:12] LABS: Basophils % 0.2 %; Eosinophils # 0.1 K/mcL (0.0-0.6); Eosinophils % 1.4 %; Hematocrit 29.4 % (35.3-44.9); Hemoglobin 9.4 g/dL (11.5-15.4); Immature Granulocytes % 0.6 % (0-4); Lymphocytes # 1.1 K/mcL (0.6-4.6); Mean Corpuscular Hemoglobin 29.9 pg (28.0-33.3); Mean Corpuscular Volume 93.6 fL (83.0-100.0); Monocytes # 0.6 K/mcL (0.0-1.3); Monocytes % 9.7 %; Neutrophils # 4.4 K/mcL (1.6-8.9); Platelet Count 135 K/mcL (140-400); Red Blood Count 3.14 M/mcL (3.82-4.97); Red Cell Distribution Width 14.6 % (11.5-14.5); Segmented Neutrophils % 70.1 %
[2016-11-29 04:27] LABS: BUN/Creatinine Ratio 23 (6-26); Blood Urea Nitrogen 19 mg/dL (7-20); Calcium 8.6 mg/dL (8.6-10.8); Carbon Dioxide 27 mEq/L (19-29); Chloride 104 mEq/L (98-109); Glucose 123 mg/dL (70-99); Osmolality,Calculated 286 (280-300); Sodium 136 mEq/L (136-145); eGFR For African Americans > 60 (> 60); eGFR For Non-African Americans > 60 (> 60)
[2016-11-29] MEDS: *HR* Enoxaparin 30 MG/0.3 ML SYRINGE SQ SCH (06:23)
--- NOTE | 2016-11-29 07:57 | Orthopedics Progress Note ---
Date of Encounter: 11/29/16 Time of Encounter: 07:56 - Assessment and Plan (1) Arthritis of right hip Current Visit: Yes Status: Acute (2) Hyperlipidemia Current Visit: Yes Status: Chronic Qualifiers: Hyperlipidemia type: unspecified Qualified Code(s): E78.5 - Hyperlipidemia , unspecified (3) Acute blood loss anemia Current Visit: Yes Status: Acute (4) Atrial fibrillation with rapid ventricular response Current Visit: Yes Status: Acute Subjective Interval history: Patient was seen this morning doing well without complaints. Patient on oral medication for it or fibrillation. Afebrile vital signs stable. Operative extremity: Neurovascularly intact Dressing clean dry and intact Calves nontender Assessment and plan: Continue with postoperative care hematocrit 29 discharged today Objective Vital signs: Vital Signs Temp Pulse Resp BP Pulse Ox 11/29/16 06:59 98.1 F 80 16 123/78 98 11/29/16 04:45 98.5 F 80 14 135/85 98 11/29/16 00:38 99.2 F 88 17 124/78 98 11/28/16 21:27 99.7 F H 108 15 124/75 98 11/28/16 19:47 99.8 F H 107 14 128/80 11/28/16 19:40 100 11/28/16 19:35 99.8 F H 107 14 128/80 100 11/28/16 18:34 98.5 F 92 13 124/74 99 11/28/16 18:19 97.7 F 85 14 123/80 92 11/28/16 15:30 98.3 F 86 14 112/70 97 11/28/16 12:53 98.3 F 75 15 98/59 97 11/28/16 11:49 99.3 F 91 14 95/62 94 11/28/16 11:34 99.9 F H 87 13 94 11/28/16 09:00 119 14 87/55 97 11/28/16 08:45 97 10 87/58 95 11/28/16 08:30 78 93/57 11/28/16 08:15 80 98/64 Intake and Output 11/28/16 11/28/16 11/29/16 15:59 23:59 07:59 Intake Total 0 / 0 852 / 852 Output Total 400 / 400 Balance 0 / 0 852 / 852 -400 / -400 Intake: Blood Product 0 / 0 852 / 852 Rbcs Leuko Poor As-1 700 / 700 Unit [id number] Rbcs Leuko Poor As-1 0 / 0 152 / 152 Unit [id number] Output: Urine 400 / 400 - Labs CBC & BMP: 11/29/16 03:46 11/29/16 03:46 Labs: Abnormal lab results RBC 3.14 M/mcL (3.82-4.97) L 11/29/16 03:46 Hgb 9.4 g/dL (11.5-15.4) L 11/29/16 03:46 Hct 29.4 % (35.3-44.9) L 11/29/16 03:46 RDW 14.6 % (11.5-14.5) H 11/29/16 03:46 Plt Count 135 K/mcL (140-400) L 11/29/16 03:46 Glucose 123 mg/dL (70-99) H 11/29/16 03:46 Magnesium 1.4 mg/dL (1.6-2.6) L 11/28/16 03:47 - VTE Documentation of Mechanical Device: Venous foot pump, device Consult Discharge Plan - Plan Referrals: Santos Jefferson MD [Partnered Physician] - 12/26/16 5:20 pm Kristi Robison PAC [Physician Entrepreneur] - 12/06/16 9:00 am Patrick Clarke Jr, MD [Primary Care Provider] -
[2016-11-29] MEDS: *HR* OxyCODONE Immed Rel 5 MG TABLET PO PRN (09:29)
[2016-11-29] MEDS: Lactobacillus 1 EACH CAP.SPRINK PO SCH (09:30)
[2016-11-29] MEDS: Aspirin Enteric Coated 81 MG Tablet PO SCH (09:30)
[2016-11-29] MEDS: Multivit/Ca/Min/Fe/FA 1 TAB TABLET PO SCH (09:30)
[2016-11-29] MEDS: Ascorbic Acid 500 MG TABLET PO SCH (09:30)
--- NOTE | 2016-11-29 10:28 | Cardiology Progress Note ---
<Hilario Franco Dorothy - Last Filed: 11/29/16 11:25> Date of Encounter: 11/29/16 Time of Encounter: 10:26 Assessment and Plan (1) Acute blood loss anemia Status: Acute Hgb improved to 9.4 form 8.4 yesterday after transfusion (2) Atrial fibrillation with rapid ventricular response Status: Acute New onset Afib RVR at approx midnight on morning of 11/28 in the setting of acute blood loss anemia and fever and mild electrolyte abnormalities Patient BP unable to tolerate cardizem at rate of 5mg/hr BP initially unable to tolerate cardizem drip, oral metoprolol 12.5 given. Potassium level mildly decreased and is being supplemented Magnesium level of 1.4 and supplementation is ordered [id number] score of 3 (age +2, sex +1), no current anticoagulation due to recent surgery and needing blood transfusion Will re-evaluate coagulation as an outpatient Echo shows no acute changes Since yesterday she has converted to NSR HR and BP are stable/controlled Recommend remaining on aspirin as long as orthopedics agrees Recommend following up at an outpatient to discuss anticoagulation Recommend remaining on metoprolol PO at home Discussion w patient/family: The assessment and plan as outlined above was discussed with the patient and/or family members who expressed understanding and agreement. All questions were answered. Thank you for involving us in the care of your patient. Please call with any questions. Subjective Interval history: Converted to NSR yesterday and has been in NSR since then. She denies any CP or dyspnea. Denies palpitations. She has been able to get up with physical therapy. Objective Vital Signs, Last 4 Hours Temp Pulse Resp BP Pulse Ox 11/29/16 09:35 97 11/29/16 06:59 98.1 F 80 16 123/78 98 General: Conversant HEENT: Atraumatic Neck: No JVD Cardiac: Reg Rate and Rhythm, Normal S1 and S2 Lungs: Normal Breath Sounds, No Wheeze, Rales, Rhonchi Neuro: Alert and responsive Abdomen: Soft Extremities: Other (expected edema to RLE from hip surgery) Results 11/29/16 03:46 11/29/16 03:46 Lab Results 11/29/16 11/29/16 03:46 03:46 WBC 6.2 Hgb 9.4 L Hct 29.4 L Plt Count 135 L Sodium 136 Potassium 4.0 Chloride 104 Carbon Dioxide 27 BUN 19 Creatinine 0.83 Glucose 123 H Calcium 8.6 - VTE Documentation of Mechanical Device: Venous foot pump, device Consult Discharge Plan - Plan Additional Instructions: Discharge Instructions: Total Hip Replacement Please call [facility] ([phone]), your Primary Care Physician, or report to the Emergency Room if you have any of the following symptoms: Nausea, vomiting, fever greater that 101.5, swelling, chest pain, shortness of breath, increased pain/redness/drainage/odor for your incision site, numbness/ tingling, or any other concerning symptoms. ACTIVITY:Weight-bearing as tolerated for 8 weeks with hip dislocation precautions that physical therapy taught you. You may progress as tolerated under the guidance of your physical therapist. You do not need to sleep with a pillow between your legs. You can also seep on the operative side or on your stomach. MEDICATIONS: Upon discharge resume your home medications. Take all the medications as prescribed. Take a stool softener if taking narcotic pain medications. Stool softeners are only effective if you drink enough fluids. Drink 6-8 glass of water or fluids a day, unless this is not allowed for another health problem. Despite using stool softeners, if you haven't had a bowel movement in 3 days, please switch to a gentle laxative. Gentle laxatives are sold over the counter. You should have a bowel movement within 24 hours, if not call the office. You will be discharged from the hospital with a prescription for pain medication. You are encouraged to decrease the use of narcotic pain medication as tolerated. Should you require a refill, please call the office. [facility] prescribes narcotic pain medication for only 4-6 weeks after surgery. If you require pain medication beyond this time period, you may be referred to your Primary Care Physician or to the Pain Clinic for further evaluation. Plan ahead for refills on pain medication as many narcotics either need to be picked up at the office or mailed. It is best to call 48-72 hours in advance of needing a prescription refill so you don't run out of medication. To help control the post-operative pain, you may take NSAIDs (Aleve,Advil, Motrin, ibuprofen, naprosyn) or Tylenol as prescribed on the bottle in addition to the pain medication. ANTICOAGULATION (blood thinners): Continue your Aspirin, Lovenox or Coumadin as prescribed to help prevent a blood clot in the leg or in the lungs. As long as your incision remains dry and you tolerate the NSAIDs (Aleve, Advil, Motrin, Ibuprofen, Naprosyn), it is OK to use the NSAIDS while you are taking your anticoagulation medication. Should your incision start to drain, stop the NSAID and contact our office. Common symptoms of blood clot in the legs include: localized pain, swelling, calf tenderness, redness or discoloration of the skin. Blood clot in the lung symptoms include: shortness of breath, rapid pulse, sweating, and chest pain that worsens with deep breathing, coughing up blood, lightheadedness, feelings of anxiety. If you experience any of these symptoms notify your physician immediately, go to the emergency room, or if having trouble breathing, call 911. WOUND CARE: Leave the dressing on for 7 to 10days. You may change the dressing if it is saturated greater than 50%. Do not get the dressing wet at anytime. Wash your hands with antibacterial soap, rinse and dry prior to any wound care. If you have kaylynn the visiting nurse or rehab facility can remove the stapes 10-14 days after surgery and place steri-strips across the wound. Leave the steri-strips in place until they fall off on their own. You may let water from the shower run on top of the steri-strips. If you do not have a visiting nurse or rehab facility, you will need to return to the office at 10-14 days for the kaylynn to be removed. If you have itching or redness around the dressing call the office. FOLLOW-UP: Please follow up with your surgeon in the orthopedic clinic in 6 weeks from the day of surgery. If you have kaylynn that need to be removed, you will need to come back to the office in 10-14 days from the day of surgery. Referrals: Santos Jefferson MD [Partnered Physician] - 12/26/16 5:20 pm Kristi Robison PAC [Physician Golf Ball Marker] - 12/06/16 9:00 am Patrick Clarke Jr, MD [Primary Care Provider] - Prescriptions: Ascorbic Acid [Vitamin C] 500 mg PO BIDWM #30 tablet Ferrous Sulfate 325 mg PO BIDWM #30 tablet Metoprolol [Lopressor] 12.5 mg PO BID #30 tablet <Cat Lopez - Last Filed: 11/29/16 14:31> Date of Encounter: 11/29/16 Assessment and Plan Discussion w patient/family: Ms. Biggs is feeling better today. She is now in NSR. Echo demonstrated no concerning findings. She is being transferred to an extended care facility for rehab today. We recommend continuing BB at low dose. She has started aspirin. Will further discuss starting full anticoagulation when seen for outpatient follow up. Her CHADSVASC is 3 but given recent blood loss anemia around the perioperative period requiring transfusion, we have recommended holding off on full anticoagulation. Objective Vital Signs, Last 4 Hours Temp Pulse Resp BP Pulse Ox 11/29/16 11:15 98.1 F 96 16 146/85 95 Results 11/29/16 03:46 11/29/16 03:46 Lab Results 11/29/16 11/29/16 03:46 03:46 WBC 6.2 Hgb 9.4 L Hct 29.4 L Plt Count 135 L Sodium 136 Potassium 4.0 Chloride 104 Carbon Dioxide 27 BUN 19 Creatinine 0.83 Glucose 123 H Calcium 8.6
[2016-11-29 11:15] VITALS: BP 146/85
--- NOTE | 2016-11-29 12:16 | Internal Med Progress Note ---
Date of Encounter: 11/29/16 Time of Encounter: 12:13 - Assessment and plan (1) Arthritis of right hip Current Visit: Yes Status: Acute Assessment and plan: s/p total hip replacement; local wound and postoperative care per Orthopedic surgery; PT evaluation completed, recommend SNF placement; patient is currently medically stable and being discharged to [facility] today, by primary team; (2) Acute blood loss anemia Current Visit: Yes Status: Acute Assessment and plan: s/p PRBC transfusion; Hb today 9.4; continue ferrous sulfate supplements; (3) Atrial fibrillation with rapid ventricular response Current Visit: Yes Status: Resolved Assessment and plan: Patient currently converted to sinus rhythm; Cardiology f/up appreciated; Echocardiogram shows preserved EF, mild LV diastolic dysfunction, mild LA dilatation; heart rate well-controlled; continue low dose Metoprolol; continue high dose ASA for now, 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 Absent: accessory muscle use, rales, rhonchi, wheezes - Cardiovascular Cardiovascular exam: Present: RRR, +S1, +S2. Absent: diastolic murmur, gallop, rubs, systolic murmur Internal Medicine: Result - Labs CBC & Chem 7: 11/29/16 03:46 11/29/16 03:46 Labs: Short CBC 11/29/16 Range/Units 03:46 WBC 6.2 (4.3-11.1) K/mcL Hgb 9.4 L (11.5-15.4) g/dL Hct 29.4 L (35.3-44.9) % Plt Count 135 L (140-400) K/mcL Neutrophils # 4.4 (1.6-8.9) K/mcL BMP 11/29/16 03:46 Sodium 136 Potassium 4.0 Chloride 104 Carbon Dioxide 27 BUN 19 Creatinine 0.83 Glucose 123 H Calcium 8.6 - VTE Documentation of Mechanical Device: Venous foot pump, device Consult Discharge Plan - Plan Additional Instructions: Discharge Instructions: Total Hip Replacement Please call [facility] ([phone]), your Primary Care Physician, or report to the Emergency Room if you have any of the following symptoms: Nausea, vomiting, fever greater that 101.5, swelling, chest pain, shortness of breath, increased pain/redness/drainage/odor for your incision site, numbness/ tingling, or any other concerning symptoms. ACTIVITY:Weight-bearing as tolerated for 8 weeks with hip dislocation precautions that physical therapy taught you. You may progress as tolerated under the guidance of your physical therapist. You do not need to sleep with a pillow between your legs. You can also seep on the operative side or on your stomach. MEDICATIONS: Upon discharge resume your home medications. Take all the medications as prescribed. Take a stool softener if taking narcotic pain medications. Stool softeners are only effective if you drink enough fluids. Drink 6-8 glass of water or fluids a day, unless this is not allowed for another health problem. Despite using stool softeners, if you haven't had a bowel movement in 3 days, please switch to a gentle laxative. Gentle laxatives are sold over the counter. You should have a bowel movement within 24 hours, if not call the office. You will be discharged from the hospital with a prescription for pain medication. You are encouraged to decrease the use of narcotic pain medication as tolerated. Should you require a refill, please call the office. [facility] prescribes narcotic pain medication for only 4-6 weeks after surgery. If you require pain medication beyond this time period, you may be referred to your Primary Care Physician or to the Pain Clinic for further evaluation. Plan ahead for refills on pain medication as many narcotics either need to be picked up at the office or mailed. It is best to call 48-72 hours in advance of needing a prescription refill so you don't run out of medication. To help control the post-operative pain, you may take NSAIDs (Aleve,Advil, Motrin, ibuprofen, naprosyn) or Tylenol as prescribed on the bottle in addition to the pain medication. ANTICOAGULATION (blood thinners): Continue your Aspirin, Lovenox or Coumadin as prescribed to help prevent a blood clot in the leg or in the lungs. As long as your incision remains dry and you tolerate the NSAIDs (Aleve, Advil, Motrin, Ibuprofen, Naprosyn), it is OK to use the NSAIDS while you are taking your anticoagulation medication. Should your incision start to drain, stop the NSAID and contact our office. Common symptoms of blood clot in the legs include: localized pain, swelling, calf tenderness, redness or discoloration of the skin. Blood clot in the lung symptoms include: shortness of breath, rapid pulse, sweating, and chest pain that worsens with deep breathing, coughing up blood, lightheadedness, feelings of anxiety. If you experience any of these symptoms notify your physician immediately, go to the emergency room, or if having trouble breathing, call 911. WOUND CARE: Leave the dressing on for 7 to 10days. You may change the dressing if it is saturated greater than 50%. Do not get the dressing wet at anytime. Wash your hands with antibacterial soap, rinse and dry prior to any wound care. If you have kaylynn the visiting nurse or rehab facility can remove the stapes 10-14 days after surgery and place steri-strips across the wound. Leave the steri-strips in place until they fall off on their own. You may let water from the shower run on top of the steri-strips. If you do not have a visiting nurse or rehab facility, you will need to return to the office at 10-14 days for the kaylynn to be removed. If you have itching or redness around the dressing call the office. FOLLOW-UP: Please follow up with your surgeon in the orthopedic clinic in 6 weeks from the day of surgery. If you have kaylynn that need to be removed, you will need to come back to the office in 10-14 days from the day of surgery. Referrals: Santos Jefferson MD [Partnered Physician] - 12/26/16 5:20 pm Kristi Robison PAC [Physician Crocheter Hand] - 12/06/16 9:00 am Patrick Clarke Jr, MD [Primary Care Provider] -
--- NOTE | 2016-11-29 12:21 | Physician Discharge Referral ---
ExtendedCare Referral Info Transfer To: [facility] Provider in Charge: Santos Jefferson Provider in Charge after Transfer: PCP Institutional Level of Care: Skilled - Diagnosis (1) Arthritis of right hip Priority: Primary Status: Acute (2) Acute blood loss anemia Priority: Primary Status: Acute (3) Atrial fibrillation with rapid ventricular response Priority: Primary Status: Resolved Expected Duration of Placement: 3 weeks Prognosis: Good Aware of Diagnosis: Patient Aware of Prognosis: Patient - Transfer Medications Prescriptions: Ascorbic Acid [Vitamin C] 500 mg PO BIDWM #30 tablet Ferrous Sulfate 325 mg PO BIDWM #30 tablet Metoprolol [Lopressor] 12.5 mg PO BID #30 tablet Home Medications: Acetaminophen [Tylenol] 325 mg PO Q6HR PRN 11/26/16 [History] Aspirin Enteric Coated [Aspirin EC] 325 mg PO DAILY #21 tablet.dr 11/26/16 [Rx] Calcium Carbonate [Calcium] 600 mg PO DAILY 11/26/16 [History] Docusate Sodium [Colace] 100 mg PO DAILY PRN 11/26/16 [History] Lactobacillus Combination No.8 [Adult Probiotic] 1 cap PO DAILY 11/26/16 [ History] OxyCODONE Immed Rel [Roxicodone 5 MG] 5 - 10 mg PO Q6HR PRN #40 tablet 11/26/16 [Rx] Ubidecarenone/Vit E Acetate [Co Q-10 100 mg Softgel] 1 each PO DAILY 11/26/16 [ History] Vitamin E Acid Succinate [Vitamin E] 400 units PO DAILY 11/26/16 [History] Ascorbic Acid [Vitamin C] 500 mg PO BIDWM #30 tablet 11/29/16 [Rx] Ferrous Sulfate 325 mg PO BIDWM #30 tablet 11/29/16 [Rx] Metoprolol [Lopressor] 12.5 mg PO BID #30 tablet 11/29/16 [Rx] Allergies/Adverse Reactions: Allergies Penicillins [PCN] Allergy (Verified 08/30/16 15:01) Rash Tetanus Vaccines and Toxoid Allergy (Verified 08/30/16 15:01) Anaphylaxis - Respiratory Orders Smoking Cessation: Smoking cessation has been advised. For more information, call the [place] Tobacco Quit Line at 5-701-WPXK-NOW. - Advance Directives Code Status: Full Code - Mobility Orders Ambulate - Rehabiliation Orders Rehab Potential: Good Rehab Orders: ROM Exercises, Evaluation for Physical Therapy, Evaluation for Occupational Therapy - Diet Orders Cardiac CERTIFICATION: I certify that the transfer of the above named patient to an Extended Care Facility is necessary for the continuing treatment of the diagnosis listed. The above information is true and accurate reflection of patient's current condition. Confidential - Redisclosure prohibited without a patient's written consent.
== END 2016-11-29 13:39 | DRG 470 ==
LOC: SAMDAY 10:15 → SUATTDRO 14:49 → 3NENU 14:49
PROVIDERS: ADMIT Orthopaedic Surgery; ATTEND Internal Medicine

== ENCOUNTER 2016-12-01 04:52 | Observation (INO) ==
--- NOTE | 2016-12-01 05:02 | Emergency Department Note ---
Disposition Clinical Impression: Goiter Atrial fibrillation Qualifiers: Atrial fibrillation type: paroxysmal Qualified Code(s): I48.0 - Paroxysmal atrial fibrillation Disposition: Admitted As Inpatient Condition: Good Referrals: NO,PCP [Non-Partnered Physician] - Forms: ED Satisfaction Letter Time of Disposition: 06:29 General Adult HPI - General Chief complaint: ED Arrhythmia/Palpitations Stated complaint: Arrythmia, Fluttering in chest Time Seen by Provider: 12/01/16 04:59 Nursing Notes Reviewed: Yes Vital Signs Reviewed: Yes - History of Present Illness HPI Narrative: Patient woke up this morning and noticed that her heart was fluttering. She states she also feels into her back. She denies any shortness of breath or chest pain. She denies any dizziness. She denies any other symptoms. She states she went into A. fib personally 5 days ago after her hip surgery. She did convert with medication while here. - Related Data Home Medications Medication Instructions Recorded Confirmed Acetaminophen [Tylenol] 325 mg PO Q6HR PRN 11/26/16 11/26/16 Calcium Carbonate [Calcium] 600 mg PO DAILY 11/26/16 11/26/16 Docusate Sodium [Colace] 100 mg PO DAILY PRN 11/26/16 11/26/16 Lactobacillus Combination No.8 1 cap PO DAILY 11/26/16 11/26/16 [Adult Probiotic] Ubidecarenone/Vit E Acetate [Co 1 each PO DAILY 11/26/16 11/26/16 Q-10 100 mg Softgel] Vitamin E Acid Succinate [Vitamin 400 units PO DAILY 11/26/16 11/26/16 E] Previous Rx's Medication Instructions Recorded Aspirin Enteric Coated [Aspirin EC] 325 mg PO DAILY #21 tablet. 11/26/16 OxyCODONE Immed Rel [Roxicodone 5 5 - 10 mg PO Q6HR PRN #40 tablet 11/26/16 MG] Ascorbic Acid [Vitamin C] 500 mg PO BIDWM #30 tablet 11/29/16 Ferrous Sulfate 325 mg PO BIDWM #30 tablet 11/29/16 Metoprolol [Lopressor] 12.5 mg PO BID #30 tablet 11/29/16 Allergies Allergy/AdvReac Type Severity Reaction Status Date / Time Penicillins [PCN] Allergy Rash Verified 08/30/16 15:01 Tetanus Vaccines and Toxoid Allergy Anaphylaxis Verified 08/30/16 15:01 All systems ED: reviewed and negative except as stated. Constitutional: Denies: fever, chills ENT ED: Denies: ear pain, throat pain Cardiovascular: Reports: palpitations. Denies: chest pain, dyspnea on exertion , syncope Respiratory: Denies: cough, dyspnea, wheezes Gastrointestinal: Denies: abdominal pain, nausea, vomiting, diarrhea Genitourinary: Denies: urgency, dysuria, frequency Musculoskeletal: Denies: back pain, neck pain Integumentary: Denies: rash, abrasion Neurological: Denies: headache, weakness Past Medical History - Past Medical History Medical history: Reports: non-contributory, hyperlipidemia Psychiatric history: Reports: no psych history - Social History Smoking Status: Former smoker Smokeless Tobacco Status: No Alcohol use: Reports: none Drug use: Reports: none Physical Exam - General Limitations: no limitations General appearance: alert, in no apparent distress - Head Head exam: atraumatic, normocephalic - Eye Eye exam: Present: normal appearance, PERRL, EOMI - ENT ENT exam: normal exam, normal oropharynx, mucous membranes moist - Neck Neck exam: Present: normal inspection, full ROM, trachea midline. Absent: tenderness, meningismus, lymphadenopathy - Chest Chest inspection: Present: normal inspection, symmetric chest wall rise. Absent : tenderness - Respiratory Respiratory exam: Present: normal lung sounds bilaterally. Absent: respiratory distress - Cardiovascular Cardiovascular exam: Present: tachycardia, irregular rhythm, normal heart sounds - Abdominal Exam Abdominal exam: Present: soft, Non-Tender, normal bowel sounds - Extremities Exam Extremities exam: Present: normal inspection, normal capillary refill. Absent: tenderness, pedal edema, calf tenderness - Back Exam Back exam: Present: normal inspection, full ROM. Absent: tenderness - Neurological Exam Neurological exam: Present: alert, oriented X3 - Psychiatric Psychiatric exam: Present: normal affect, normal mood - Skin Skin exam: Present: warm, dry, intact, normal color Course Course Narrative: Female patient presenting to the emergency department with her daughter. She had a hip surgery 5 days ago. She states she went into atrial fibrillation at that time. She was given blood and "some medication" and came out of A. fib. She was then discharged home. Patient states that she woke up this morning was very sweaty and felt like her heart was fluttering. She denies any chest pain or shortness of breath. She denies any excessive swelling in her legs. She appears to be in A. fib at this time. We will get a cardiac workup and a chest x-ray. We will likely admit the patient. Tones are normal lung sounds are clear abdomen is soft and nontender. She is mentating appropriately. She has no palpable cords in her lower extremities. She has no calf tenderness. - Reevaluation(s) Reevaluation #1: Patient was in A. fib with RVR. This is been controlled with 10 mg of Cardizem IV bolus. She is now rate controlled in the 80s. We will admit patient to the hospital. It was noted that patient had a large possible goiter on her chest x- ray. We have gotten a TSH level. The needs to be further worked up. Time: 06:27 Vital Signs Temperature 97.9 F 12/01/16 04:55 Pulse Rate 120 12/01/16 04:55 Respiratory Rate 18 12/01/16 04:55 Blood Pressure 107/88 12/01/16 04:55 O2 Sat by Pulse Oximetry 98 12/01/16 04:55 Temperature 97.9 F 12/01/16 04:55 Pulse Rate 79 12/01/16 06:36 Respiratory Rate 17 12/01/16 06:36 Blood Pressure 116/86 12/01/16 06:36 O2 Sat by Pulse Oximetry 99 12/01/16 06:36 Oxygen Delivery Oxygen Delivery Nasal Cannula Medical Decision Making - Medical Records Medical records reviewed: Yes I reviewed the patient's medical records. - Lab Data Lab results reviewed: Yes I reviewed the patient's lab results. Result diagrams: 12/01/16 05:08 12/01/16 05:47 Lab Results 12/01/16 12/01/16 12/01/16 Range/Units 05:08 05:08 05:21 WBC 5.9 (4.3-11.1) K/mcL RBC 3.44 L (3.82-4.97) M/mcL Hgb 10.5 L (11.5-15.4) g/dL Hct 32.8 L (35.3-44.9) % MCV 95.3 (83.0-100.0) fL MCH 30.5 (28.0-33.3) pg MCHC 32.0 (31.6-35.5) g/dL RDW 14.2 (11.5-14.5) % Plt Count 216 D (140-400) K/mcL MPV 9.6 (9.4-12.4) fL Immature Gran % 0.5 (0-4) % Seg Neutrophils % 56.3 % Lymphocytes % 26.2 % Monocytes % 12.6 % Eosinophils % 3.9 % Basophils % 0.5 % Neutrophils # 3.3 (1.6-8.9) K/mcL Lymphocytes # 1.5 (0.6-4.6) K/mcL Monocytes # 0.7 (0.0-1.3) K/mcL Eosinophils # 0.2 (0.0-0.6) K/mcL Basophils # 0.0 (0.0-0.2) K/mcL PT 10.8 (9.4-12.1) Seconds INR 1.0 APTT 26.2 (26.0-36.0) Seconds Sodium (136-145) mEq/L Potassium (3.5-4.5) mEq/L Chloride (98-109) mEq/L Carbon Dioxide (19-29) mEq/L BUN (7-20) mg/dL Creatinine (0.57-1.11) mg/dL Est GFR ( Amer) (> 60) Est GFR (Non-Af Amer) (> 60) BUN/Creatinine Ratio (6-26) Glucose (70-99) mg/dL Calculated Osmolality (280-300) Calcium (8.6-10.8) mg/dL Troponin I (0-0.03) ng/mL Specimen Rejected Hemolyzed 12/01/16 12/01/16 Range/Units 05:47 05:47 WBC (4.3-11.1) K/mcL RBC (3.82-4.97) M/mcL Hgb (11.5-15.4) g/dL Hct (35.3-44.9) % MCV (83.0-100.0) fL MCH (28.0-33.3) pg MCHC (31.6-35.5) g/dL RDW (11.5-14.5) % Plt Count (140-400) K/mcL MPV (9.4-12.4) fL Immature Gran % (0-4) % Seg Neutrophils % % Lymphocytes % % Monocytes % % Eosinophils % % Basophils % % Neutrophils # (1.6-8.9) K/mcL Lymphocytes # (0.6-4.6) K/mcL Monocytes # (0.0-1.3) K/mcL Eosinophils # (0.0-0.6) K/mcL Basophils # (0.0-0.2) K/mcL PT (9.4-12.1) Seconds INR APTT (26.0-36.0) Seconds Sodium 139 (136-145) mEq/L Potassium 4.0 (3.5-4.5) mEq/L Chloride 102 (98-109) mEq/L Carbon Dioxide 29 (19-29) mEq/L BUN 14 (7-20) mg/dL Creatinine 0.79 (0.57-1.11) mg/dL Est GFR ( Amer) > 60 (> 60) Est GFR (Non-Af Amer) > 60 (> 60) BUN/Creatinine Ratio 18 (6-26) Glucose 94 (70-99) mg/dL Calculated Osmolality 288 (280-300) Calcium 9.2 (8.6-10.8) mg/dL Troponin I 0.02 (0-0.03) ng/mL Specimen Rejected - Radiology Data Radiology results reviewed: Yes I reviewed the patient's radiology results. Chest X-Ray 12/01/16 04:59 IMPRESSION: No acute cardiac or pulmonary disease. Suspect large left thyroid goiter. D/ / Godwin Barry MD / Godwin Barry MD Interpreting Provider: Godwin Barry MD - EKG Data EKG #1 EKG attestation: Yes I reviewed and interpreted this EKG. EKG results narrative: A. fib with RVR. Ventricular rate of 139. QRS duration is 90. QT is 283. QTC is 364. No signs of acute ischemia. She was also on this on November 28 which is her last EKG. EKG #2 EKG attestation: Yes I reviewed and interpreted this EKG. EKG results narrative: Normal sinus rhythm at a rate of 80. MA interval 138. Respiration is 89. QT is 384. QTC is 419. No signs of acute ischemia. She has converted to normal sinus rhythm from her previous EKG which was atrial fib with RVR at a rate of 139. Attestation Statement - Attestation Attestation: I examined this patient and my medical decision-making was reviewed with the PRE FABRICATOR/PA/Advanced Practice Nurse/Resident Physician. I agree with the documented findings, disposition and treatment plan as described except to the extent set forth below. Patient emergency department complaining of palpitations. Patient states she woke up and felt fluttering in her chest. Patient had a hip surgery last Saturday. She states her postoperative course was complicated by atrial fibrillation. She states he converted to normal sinus [facility] She was not started on anticoagulation, just Lopressor. On exam she is awake and alert in no acute distress. Heart is tachycardia and irregularly irregular. Plan. Cardiac workup and rate control. 30 minutes of critical care exclusive of separately billable procedures.
[2016-12-01 05:18] LABS: Basophils % 0.5 %; Eosinophils # 0.2 K/mcL (0.0-0.6); Eosinophils % 3.9 %; Hematocrit 32.8 % (35.3-44.9); Hemoglobin 10.5 g/dL (11.5-15.4); Immature Granulocytes % 0.5 % (0-4); Lymphocytes # 1.5 K/mcL (0.6-4.6); Lymphocytes % 26.2 %; Mean Corpuscular Hemoglobin 30.5 pg (28.0-33.3); Mean Corpuscular Volume 95.3 fL (83.0-100.0); Mean Platelet Volume 9.6 fL (9.4-12.4); Monocytes # 0.7 K/mcL (0.0-1.3); Monocytes % 12.6 %; Neutrophils # 3.3 K/mcL (1.6-8.9); Platelet Count 216 K/mcL (140-400); Red Blood Count 3.44 M/mcL (3.82-4.97); Red Cell Distribution Width 14.2 % (11.5-14.5); Segmented Neutrophils % 56.3 %
[2016-12-01 05:23] LABS: Prothrombin Time 10.8 Seconds (9.4-12.1)
[2016-12-01 05:26] LABS: Activated Partial Thrombo Time 26.2 Seconds (26.0-36.0)
[2016-12-01 06:26] LABS: BUN/Creatinine Ratio 18 (6-26); Blood Urea Nitrogen 14 mg/dL (7-20); Calcium 9.2 mg/dL (8.6-10.8); Carbon Dioxide 29 mEq/L (19-29); Chloride 102 mEq/L (98-109); Glucose 94 mg/dL (70-99); Osmolality,Calculated 288 (280-300); Sodium 139 mEq/L (136-145); eGFR For African Americans > 60 (> 60); eGFR For Non-African Americans > 60 (> 60)
--- NOTE | 2016-12-01 07:12 | Emergency Department Note ---
Disposition Clinical Impression: Goiter Atrial fibrillation Qualifiers: Atrial fibrillation type: paroxysmal Qualified Code(s): I48.0 - Paroxysmal atrial fibrillation Disposition: Admitted As Inpatient Condition: Good Referrals: NO,PCP [Non-Partnered Physician] - Forms: ED Satisfaction Letter Time of Disposition: 07:17 Arrhythmia/Palpitations HPI - General Chief Complaint: ED Arrhythmia/Palpitations Stated Complaint: Arrythmia, Fluttering in chest Time Seen by Provider: 12/01/16 04:59 Source: EMS Limitations: no limitations - Related Data Home Medications Medication Instructions Recorded Confirmed Acetaminophen [Tylenol] 325 mg PO Q6HR PRN 11/26/16 11/26/16 Calcium Carbonate [Calcium] 600 mg PO DAILY 11/26/16 11/26/16 Docusate Sodium [Colace] 100 mg PO DAILY PRN 11/26/16 11/26/16 Lactobacillus Combination No.8 1 cap PO DAILY 11/26/16 11/26/16 [Adult Probiotic] Ubidecarenone/Vit E Acetate [Co 1 each PO DAILY 11/26/16 11/26/16 Q-10 100 mg Softgel] Vitamin E Acid Succinate [Vitamin 400 units PO DAILY 11/26/16 11/26/16 E] Previous Rx's Medication Instructions Recorded Aspirin Enteric Coated [Aspirin EC] 325 mg PO DAILY #21 tablet. 11/26/16 OxyCODONE Immed Rel [Roxicodone 5 5 - 10 mg PO Q6HR PRN #40 tablet 11/26/16 MG] Ascorbic Acid [Vitamin C] 500 mg PO BIDWM #30 tablet 11/29/16 Ferrous Sulfate 325 mg PO BIDWM #30 tablet 11/29/16 Metoprolol [Lopressor] 12.5 mg PO BID #30 tablet 11/29/16 Allergies Allergy/AdvReac Type Severity Reaction Status Date / Time Penicillins [PCN] Allergy Rash Verified 08/30/16 15:01 Tetanus Vaccines and Toxoid Allergy Anaphylaxis Verified 08/30/16 15:01 Constitutional: Denies: fever, chills ENT ED: Denies: ear pain, throat pain Cardiovascular: Reports: palpitations. Denies: chest pain, dyspnea on exertion , syncope Respiratory: Denies: cough, dyspnea, wheezes Gastrointestinal: Denies: abdominal pain, nausea, vomiting, diarrhea Genitourinary: Denies: urgency, dysuria, frequency Musculoskeletal: Denies: back pain, neck pain Integumentary: Denies: rash, abrasion Neurological: Denies: headache, weakness Past Medical History - Past Medical History Medical history: Reports: non-contributory, hyperlipidemia Psychiatric history: Reports: no psych history - Social History Smoking Status: Former smoker Smokeless Tobacco Status: No Alcohol use: Reports: none Drug use: Reports: none Physical Exam - General Limitations: no limitations General appearance: alert, in no apparent distress Course Course Narrative: Patient received at signout from the nighttime team. Patient is an 86-year-old female who had a hip replacement [address] Jefferson. The day after her surgery. She went into A. fib. She was started on a medication and states that she went out of A. fib. She went home and came back to the emergency department last night for palpitations. She was found to be back in A. fib with RVR with heart rate of 1:30. She was given a bolus dose of Cardizem and converted back to normal sinus rhythm. She is not on any anticoagulation at this time due to her recent hip surgery. Was felt that she was high enough risk to be admitted to the hospital for further management and medication titration. Patient is in normal sinus rhythm currently. No acute distress. Heart and lungs are otherwise clear. Right hip is still dressed with postop dressing. Has expected postoperative tenderness and ecchymosis. No signs of infection. Neurovascularly intact distally. She is alert and oriented 3. No cyanosis, diaphoresis. Vital Signs Temperature 97.9 F 12/01/16 04:55 Pulse Rate 120 12/01/16 04:55 Respiratory Rate 18 12/01/16 04:55 Blood Pressure 107/88 12/01/16 04:55 O2 Sat by Pulse Oximetry 98 12/01/16 04:55 Temperature 97.9 F 12/01/16 04:55 Pulse Rate 87 12/01/16 07:05 Respiratory Rate 19 12/01/16 07:05 Blood Pressure 106/62 12/01/16 07:05 O2 Sat by Pulse Oximetry 98 12/01/16 07:05 Oxygen Delivery Oxygen Delivery Bipap Arrhythmia/Palpitations - Lab Data Result diagrams: 12/01/16 05:08 12/01/16 05:47 Lab Results 12/01/16 12/01/16 12/01/16 Range/Units 05:08 05:08 05:21 WBC 5.9 (4.3-11.1) K/mcL RBC 3.44 L (3.82-4.97) M/mcL Hgb 10.5 L (11.5-15.4) g/dL Hct 32.8 L (35.3-44.9) % MCV 95.3 (83.0-100.0) fL MCH 30.5 (28.0-33.3) pg MCHC 32.0 (31.6-35.5) g/dL RDW 14.2 (11.5-14.5) % Plt Count 216 D (140-400) K/mcL MPV 9.6 (9.4-12.4) fL Immature Gran % 0.5 (0-4) % Seg Neutrophils % 56.3 % Lymphocytes % 26.2 % Monocytes % 12.6 % Eosinophils % 3.9 % Basophils % 0.5 % Neutrophils # 3.3 (1.6-8.9) K/mcL Lymphocytes # 1.5 (0.6-4.6) K/mcL Monocytes # 0.7 (0.0-1.3) K/mcL Eosinophils # 0.2 (0.0-0.6) K/mcL Basophils # 0.0 (0.0-0.2) K/mcL PT 10.8 (9.4-12.1) Seconds INR 1.0 APTT 26.2 (26.0-36.0) Seconds Sodium (136-145) mEq/L Potassium (3.5-4.5) mEq/L Chloride (98-109) mEq/L Carbon Dioxide (19-29) mEq/L BUN (7-20) mg/dL Creatinine (0.57-1.11) mg/dL Est GFR ( Amer) (> 60) Est GFR (Non-Af Amer) (> 60) BUN/Creatinine Ratio (6-26) Glucose (70-99) mg/dL Calculated Osmolality (280-300) Calcium (8.6-10.8) mg/dL Troponin I (0-0.03) ng/mL Specimen Rejected Hemolyzed 12/01/16 12/01/16 Range/Units 05:47 05:47 WBC (4.3-11.1) K/mcL RBC (3.82-4.97) M/mcL Hgb (11.5-15.4) g/dL Hct (35.3-44.9) % MCV (83.0-100.0) fL MCH (28.0-33.3) pg MCHC (31.6-35.5) g/dL RDW (11.5-14.5) % Plt Count (140-400) K/mcL MPV (9.4-12.4) fL Immature Gran % (0-4) % Seg Neutrophils % % Lymphocytes % % Monocytes % % Eosinophils % % Basophils % % Neutrophils # (1.6-8.9) K/mcL Lymphocytes # (0.6-4.6) K/mcL Monocytes # (0.0-1.3) K/mcL Eosinophils # (0.0-0.6) K/mcL Basophils # (0.0-0.2) K/mcL PT (9.4-12.1) Seconds INR APTT (26.0-36.0) Seconds Sodium 139 (136-145) mEq/L Potassium 4.0 (3.5-4.5) mEq/L Chloride 102 (98-109) mEq/L Carbon Dioxide 29 (19-29) mEq/L BUN 14 (7-20) mg/dL Creatinine 0.79 (0.57-1.11) mg/dL Est GFR ( Amer) > 60 (> 60) Est GFR (Non-Af Amer) > 60 (> 60) BUN/Creatinine Ratio 18 (6-26) Glucose 94 (70-99) mg/dL Calculated Osmolality 288 (280-300) Calcium 9.2 (8.6-10.8) mg/dL Troponin I 0.02 (0-0.03) ng/mL Specimen Rejected S.B.A.R. - S.B.A.RJanis Situation: Demographics, MOA Background: Presenting Complaint, Relevant PMH, Meds, & Allergies Assessment: Vital Signs, Course and respsone to treatment, Exam Concerns, Patient/Family Expectation, Pertinant Lab Results, Outstanding Labs Recommendation: Recommendation based on pending studies, treatments, or consults S.B.A.RJanis Report Given to: Dr. Joseline Garsia Repor Time: 07:17
[2016-12-01 07:26] LABS: Thyroid Stimulating Hormone 1.325 mcIU/mL (0.350-4.840)
[2016-12-01] MEDS ORDERED: Acetaminophen 325 MG TABLET PO PRN (08:42)
[2016-12-01] MEDS ORDERED: Ondansetron 4 MG/2 ML VIAL IVP PRN (08:42)
[2016-12-01] MEDS ORDERED: *HR* Metoprolol 5 MG/5 ML VIAL IVP PRN (08:42)
[2016-12-01] MEDS ORDERED: *HR* Morphine 2 MG/ML SYRINGE IVP PRN (08:42)
[2016-12-01] MEDS ORDERED: Naloxone 0.4 MG/ML INJ IVP PRN (08:42)
--- NOTE | 2016-12-01 08:51 | Internal Med History&Physical ---
Date of Encounter: 12/01/16 Time of Encounter: 08:48 Assessment and Plan (1) Atrial fibrillation with rapid ventricular response Current visit: No Status: Resolved Recently diagnosed, no history of CVA, no anticoagulation due to recent surgery and acute blood loss anemia that required transfusions Continue aspirin, resume metoprolol and control with metoprolol IV as needed Apparently the patient was not continued on metoprolol when she was discharged May use Cardizem drip if needed only Consider cardiology consult if needed Omeprazole for GI prophylaxis and subcutaneous heparin for DVT prophylaxis. Admitted for observation. DNR CC arrest DNI. Time spent on this admission 40 minutes. High risk due to recurrent A. fib with rapid ventricular response (2) Acute blood loss anemia Current visit: No Status: Acute no need for further transfusions (3) Arthritis of right hip Current visit: No Status: Acute Status post total hip replacement less than a week ago (4) Hyperlipidemia Current visit: No Status: Chronic Stable Qualifiers: Hyperlipidemia type: unspecified Qualified Code(s): E78.5 - Hyperlipidemia , unspecified (5) Goiter Current visit: Yes Status: Acute follow as outpatiet. 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 Internal Medicine - H&P: HPI Chief complaint: Palpitations Admitted From: Emergency Dept History of present illness: Ms. Biggs is a 86 year old female recently discharged from the hospital after having a right hip replacement. Hip replacement was performed by Dr. Jefferson, during her prior stay she developed new onset atrial fibrillation with rapid ventricular response, patient was evaluated by Dr. Lopez and she was recommended to start metoprolol, it is not clear whether she was discharged on metoprolol or not and the patient does not know whether she has been taking it. Today, she comes complaining again of palpitations, was found to be on atrial fibrillation with rapid ventricular response with a heart rate of 130. 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 TSH is 1.32. Chadsvasc2 score is 3, she was not started on anticoagulation due to recent surgery and acute blood loss anemia that required a blood transfusion during her last hospitalization less than 6 days ago. Denies any other complaint at the moment. She was started on a Cardizem drip and currently she is in sinus rhythm without the drip running. The patient says that she required 2 units of blood last time but was able to get only 1 and a 1/2 as the line infiltrated. Today her hemoglobin is 10.5 and there are no signs of bleeding. She has been taking aspirin. Past Med Surg Social Fam HX - Past Medical History Medical history: atrial fibrillation (Not on anticoagulation due to recent surgery/bleeding and acute blood lows anemia that required transfusion), hyperlipidemia, other (Hypomagnesemia, diverticulitis, goiter) Psychiatric history: no psych history - Past Surgical History Surgical History: cholecystectomy, other (Right hip replacement, cholecystectomy , echocardiogram showed an ejection fraction of 65% with mild diastolic dysfunction) - Social History Smoking Status: Former smoker Smokeless Tobacco Status: No Alcohol use: none Drug use: none - Additional Family History Additional family history: Father with esophageal cancer and mother with CVA Internal Medicine - H&P: Meds Acetaminophen [Tylenol] 325 mg PO Q6HR PRN 11/26/16 [History] Aspirin Enteric Coated [Aspirin EC] 325 mg PO DAILY #21 tablet. 11/26/16 [Rx] Calcium Carbonate [Calcium] 600 mg PO DAILY 11/26/16 [History] Docusate Sodium [Colace] 100 mg PO DAILY PRN 11/26/16 [History] Lactobacillus Combination No.8 [Adult Probiotic] 1 cap PO DAILY 11/26/16 [ History] OxyCODONE Immed Rel [Roxicodone 5 MG] 5 - 10 mg PO Q6HR PRN #40 tablet 11/26/16 [Rx] Ubidecarenone/Vit E Acetate [Co Q-10 100 mg Softgel] 1 each PO DAILY 11/26/16 [ History] Vitamin E Acid Succinate [Vitamin E] 400 units PO DAILY 11/26/16 [History] Ascorbic Acid [Vitamin C] 500 mg PO BIDWM #30 tablet 11/29/16 [Rx] Ferrous Sulfate 325 mg PO BIDWM #30 tablet 11/29/16 [Rx] Metoprolol [Lopressor] 12.5 mg PO BID #30 tablet 11/29/16 [Rx] Allergies Penicillins [PCN] Allergy (Verified 08/30/16 15:01) Rash Tetanus Vaccines and Toxoid Allergy (Verified 08/30/16 15:01) Anaphylaxis All Systems PM: A 10-system review of systems was performed and is negative for pertinent findings except as documented above in the HPI. Review of systems: no palpitations of the moment, no CP or SOB - Constitutional Vitals: Temp Pulse Resp BP Pulse Ox 97.9 F 77 16 114/74 100 12/01/16 04:55 12/01/16 08:04 12/01/16 08:47 12/01/16 08:47 12/01/16 08:04 General appearance: Present: A&O X 3 - Head Head exam: Present: atraumatic, normocephalic - Eye Eye exam: Present: PERRL, conjuntiva pink, sclera anicteric Pupils: Present: PERRL - Neck Neck exam general surgery: Present: supple, trachea midline. Absent: lymphadenopathy - Respiratory Respiratory exam: Present: CTAB. Absent: accessory muscle use, rales, rhonchi, wheezes - Cardiovascular Cardiovascular exam: Present: RRR, +S1, +S2. Absent: diastolic murmur, gallop, rubs, systolic murmur - GI/Abdominal GI/Abdominal exam: Present: normal bowel sounds, soft, no peritoneal signs. Absent: distended, tenderness - Extremities Exam Extremities exam: Present: warm, radial pulses palpable and symetrical. Absent : calf tenderness, cyanotic, pedal edema - Neurological Exam Neurological exam: Present: CN II-XII intact, oriented X3, no focal deficits. Absent: pronater drift, facial droop, speech deficit - Skin Skin exam: Present: dry. Absent: intact (Large bruising on the left upper extremity where she had the infiltration of blood. Right hip surgery wound without any signs of infection or hematoma) Internal Med - H&P Results - Labs CBC & Chem 7: 12/01/16 05:08 12/01/16 05:47
[2016-12-01 09:09] LABS: Magnesium 1.6 mg/dL (1.6-2.6)
[2016-12-01] MEDS: Aspirin Enteric Coated 325 MG Tablet PO SCH (10:39)
[2016-12-01] MEDS: 0.9 % Sodium Chloride 1,000 ML IVC SCH (10:40)
[2016-12-01] MEDS: *HR* Heparin 5,000 UNIT/ML VIAL SQ SCH ×2 (18:23)
[2016-12-02 05:06] LABS: BUN/Creatinine Ratio 18 (6-26); Blood Urea Nitrogen 14 mg/dL (7-20); Calcium 8.5 mg/dL (8.6-10.8); Carbon Dioxide 29 mEq/L (19-29); Chloride 102 mEq/L (98-109); Glucose 94 mg/dL (70-99); Osmolality,Calculated 286 (280-300); Potassium 3.9 mEq/L (3.5-4.5); Sodium 138 mEq/L (136-145); eGFR For African Americans > 60 (> 60); eGFR For Non-African Americans > 60 (> 60)
[2016-12-02] MEDS: *HR* Heparin 5,000 UNIT/ML VIAL SQ SCH ×2 (06:04→21:49)
[2016-12-02] MEDS: *HR* OxyCODONE Immed Rel 5 MG TABLET PO PRN (06:27)
[2016-12-02] MEDS: 0.9 % Sodium Chloride 1,000 ML IVC SCH (08:55)
[2016-12-02] MEDS: Aspirin Enteric Coated 325 MG Tablet PO SCH (08:56)
--- NOTE | 2016-12-02 09:26 | Electrocardiograph Report ---
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
--- NOTE | 2016-12-02 09:27 | Electrocardiograph Report ---
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
--- NOTE | 2016-12-02 10:44 | Internal Med Progress Note ---
<Prince Quevedo - Last Filed: 12/02/16 13:17> Date of Encounter: 12/02/16 Time of Encounter: 10:15 - Assessment and plan (1) Atrial fibrillation with rapid ventricular response Current Visit: No Status: Resolved Assessment and plan: Paroxysmal Afib, s/p Right hip replacement 11/26/16 in setting of post-operative anemia. EKG on 12/01/16 05:01 discloses Afib 139bpm, with conversion to sinus 80bpm 06:42 11/28/16 Echo EF 65%, mild LV diastolic dysfunction, [id number] dilated left atrium, no evidence PAH/VHD TSH and electrolytes wnl. Will resume low dose BB Per cardiology on 11/29/16: Her CHADSVASC is 3 but given recent blood loss anemia around the perioperative period requiring transfusion, we have recommended holding off on full anticoagulation Agree with holding off on full anticoagulation at this time. Had trope drawn x 1 on 5/6 AM, will repeat x 1, trope 0.02, 0.01 >12 hrs. (2) Acute blood loss anemia Current Visit: No Status: Acute Assessment and plan: s/p Right hip replacement 11/26/16 in setting of post-operative anemia. 12/01/16 Hgb 10.5, steady vs discharge 11/29/16 with Hgb 9.4 (3) Status post right hip replacement Current Visit: Yes Status: Acute Assessment and plan: s/p Right hip replacement 11/26/16 No signs of bleed/hematoma Cont pain control regimen (4) DVT prophylaxis Current Visit: No Status: Acute Assessment and plan: Heparin 5000 U SC BID - Subjective Interval history: Patient seen/eval, she affirms events prompting hospitalization. States that she was at evening bingo and noticed her heart racing. She did not have BB on hand. No overt chest pain, nvd, or dyspnea, no lightheadedness. At present she is in sinus rhythm and feels no palpitations. Right hip is mildly sore, itchy at incisional site but no swelling or pain. - Constitutional Vitals: Temp Pulse Resp BP Pulse Ox 98.5 F 77 15 143/89 95 12/02/16 06:18 12/02/16 06:18 12/02/16 06:18 12/02/16 06:18 12/02/16 09:43 General appearance: Present: cooperative, A&O X 3 - Head Head exam: Present: atraumatic, normocephalic - Eye Eye exam: Present: EOMI, sclera anicteric - ENT ENT exam: Present: mucous membranes moist Additional comments: upper row denture - Neck Neck exam general surgery: Present: supple, trachea midline - Respiratory Respiratory exam: Present: CTAB. Absent: rhonchi - Cardiovascular Cardiovascular exam: Present: +S1, +S2. Absent: JVD - GI/Abdominal GI/Abdominal exam: Present: soft, no peritoneal signs. Absent: tenderness - Extremities Exam Extremities exam: Present: pedal edema (mild malia LE nonpitting), warm, radial pulses palpable and symetrical Additional comments: Right hip with bandage, mild ecchymosis, no fluctuance - Neurological Exam Neurological exam: Absent: facial droop, speech deficit Internal Medicine: Result - Labs CBC & Chem 7: 12/01/16 05:08 12/02/16 03:48 Labs: BMP 12/02/16 03:48 Sodium 138 Potassium 3.9 Chloride 102 Carbon Dioxide 29 BUN 14 Creatinine 0.77 Glucose 94 Calcium 8.5 L - ABG Interpretation ABG results: PT/INR, D-dimer PT 10.8 Seconds (9.4-12.1) 12/01/16 05:08 Consult Discharge Plan - Plan Referrals: Patrick Clarke Jr, MD [Primary Care Provider] - <Santino Cuevas P - Last Filed: 12/02/16 17:27> Date of Encounter: 12/02/16 - Constitutional Vitals: Temp Pulse Resp BP Pulse Ox 98.3 F 78 15 150/97 99 12/02/16 16:00 12/02/16 16:00 12/02/16 16:00 12/02/16 16:00 12/02/16 16:00 Internal Medicine: Result - Labs CBC & Chem 7: 12/01/16 05:08 12/02/16 03:48 Labs: BMP 12/02/16 03:48 Sodium 138 Potassium 3.9 Chloride 102 Carbon Dioxide 29 BUN 14 Creatinine 0.77 Glucose 94 Calcium 8.5 L Cardiac Enzymes 12/02/16 Range/Units 12:01 Troponin I 0.01 (0-0.03) ng/mL - ABG Interpretation ABG results: PT/INR, D-dimer PT 10.8 Seconds (9.4-12.1) 12/01/16 05:08 - Attending Attestation I examined this patient and my medical decision-making was reviewed with the BREAKFAST MANAGER/PA/Advanced Practice Nurse/Resident Physician. I agree with the documented findings, disposition and treatment plan as described except to the extent set forth below.
[2016-12-03 05:14] LABS: Basophils % 0.2 %; Eosinophils # 0.3 K/mcL (0.0-0.6); Eosinophils % 5.4 %; Hematocrit 30.2 % (35.3-44.9); Hemoglobin 9.8 g/dL (11.5-15.4); Immature Granulocytes % 0.6 % (0-4); Lymphocytes # 1.1 K/mcL (0.6-4.6); Lymphocytes % 20.9 %; Mean Corpuscular HGB Conc 32.5 g/dL (31.6-35.5); Mean Corpuscular Hemoglobin 31.1 pg (28.0-33.3); Mean Corpuscular Volume 95.9 fL (83.0-100.0); Mean Platelet Volume 9.8 fL (9.4-12.4); Monocytes # 0.6 K/mcL (0.0-1.3); Monocytes % 12.5 %; Platelet Count 258 K/mcL (140-400); Red Blood Count 3.15 M/mcL (3.82-4.97); Red Cell Distribution Width 14.3 % (11.5-14.5); Segmented Neutrophils % 60.4 %
[2016-12-03 05:40] LABS: BUN/Creatinine Ratio 18 (6-26); Blood Urea Nitrogen 13 mg/dL (7-20); Calcium 8.5 mg/dL (8.6-10.8); Carbon Dioxide 29 mEq/L (19-29); Chloride 105 mEq/L (98-109); Glucose 93 mg/dL (70-99); Magnesium 1.5 mg/dL (1.6-2.6); Osmolality,Calculated 290 (280-300); Potassium 3.9 mEq/L (3.5-4.5); Sodium 140 mEq/L (136-145); eGFR For African Americans > 60 (> 60); eGFR For Non-African Americans > 60 (> 60)
[2016-12-03] MEDS: *HR* Heparin 5,000 UNIT/ML VIAL SQ SCH (06:14)
[2016-12-03] MEDS: Aspirin 81 MG TAB.CHEW PO SCH (09:06)
--- NOTE | 2016-12-03 12:25 | Internal Med Progress Note ---
Date of Encounter: 12/03/16 Time of Encounter: 12:22 - Assessment and plan (1) Atrial fibrillation with rapid ventricular response Current Visit: No Status: Resolved Assessment and plan: Paroxysmal Afib, s/p Right hip replacement 11/26/16 in setting of post-operative anemia. EKG on 12/01/16 05:01 discloses Afib 139bpm, with conversion to sinus 80bpm 06:42 11/28/16 Echo EF 65%, mild LV diastolic dysfunction, [id number] dilated left atrium, no evidence PAH/VHD TSH and electrolytes wnl. Will resume low dose BB Per cardiology on 11/29/16: Her CHADSVASC is 3 but given recent blood loss anemia around the perioperative period requiring transfusion, we have recommended holding off on full anticoagulation Agree with holding off on full anticoagulation at this time. Had trope drawn x 1 on 5/6 AM, will repeat x 1, trope 0.02, 0.01 >12 hrs. 12/03/2016 Patient's heart rate is between 70 and 80. Responded well to intravenous Cardizem with switch over to oral Cardizem. Oral beta blockers resumed. Will continue same treatment for now (2) Acute blood loss anemia Current Visit: No Status: Acute Assessment and plan: s/p Right hip replacement 11/26/16 in setting of post-operative anemia. 12/01/16 Hgb 10.5, steady vs discharge 11/29/16 with Hgb 9.4 12/03/2016 Noted that this morning patient hemoglobin is 9.8. Hemoglobin in October 2016 is 13.3. This is a big drop. If it persists then she needs further workup in terms of GI evaluation. Repeat CBC tomorrow. IV PPI twice a day SCD for DVT prophylaxis. (3) Status post right hip replacement Current Visit: Yes Status: Acute Assessment and plan: s/p Right hip replacement 11/26/16 No signs of bleed/hematoma Cont pain control regimen (4) DVT prophylaxis Current Visit: No Status: Acute Assessment and plan: SC BID - Subjective Interval history: Seen and examined. Chart reviewed. Patient is comfortably sitting in the bed. patient denies chest pain, shortness of breath, abdominal pain and diarrhea - Constitutional Vitals: Temp Pulse Resp BP Pulse Ox 98.5 F 96 16 150/83 93 12/03/16 07:59 12/03/16 07:59 12/03/16 07:59 12/03/16 07:59 12/03/16 07:59 General appearance: Present: cooperative, A&O X 3 - Head Head exam: Present: atraumatic, normocephalic - Eye Eye exam: Present: PERRL, conjuntiva pink, sclera anicteric Pupils: Present: PERRL - Neck Neck exam general surgery: Present: supple, trachea midline. Absent: lymphadenopathy - Respiratory Respiratory exam: Present: CTAB. Absent: accessory muscle use, rales, rhonchi, wheezes - Cardiovascular Cardiovascular exam: Present: RRR, +S1, +S2. Absent: diastolic murmur, gallop, rubs, systolic murmur - GI/Abdominal GI/Abdominal exam: Present: normal bowel sounds, soft, no peritoneal signs. Absent: distended, tenderness - Extremities Exam Extremities exam: Present: warm, radial pulses palpable and symetrical. Absent : calf tenderness, cyanotic, pedal edema - Neurological Exam Neurological exam: Present: CN II-XII intact, oriented X3, no focal deficits. Absent: pronater drift, facial droop, speech deficit - Skin Skin exam: Present: dry, intact Internal Medicine: Result - Labs CBC & Chem 7: 12/03/16 04:55 12/03/16 04:55 Labs: Short CBC 12/03/16 Range/Units 04:55 WBC 5.0 (4.3-11.1) K/mcL Hgb 9.8 L (11.5-15.4) g/dL Hct 30.2 L (35.3-44.9) % Plt Count 258 (140-400) K/mcL Neutrophils # 3.0 (1.6-8.9) K/mcL BMP 12/03/16 04:55 Sodium 140 Potassium 3.9 Chloride 105 Carbon Dioxide 29 BUN 13 Creatinine 0.72 Glucose 93 Calcium 8.5 L Cardiac Enzymes 12/02/16 Range/Units 12:01 Troponin I 0.01 (0-0.03) ng/mL - ABG Interpretation ABG results: PT/INR, D-dimer PT 10.8 Seconds (9.4-12.1) 12/01/16 05:08 Consult Discharge Plan - Plan Referrals: Patrick Clarke Jr, MD [Primary Care Provider] -
[2016-12-03] MEDS: Pantoprazole 40 MG VIAL IVP SCH (17:09)
[2016-12-03] MEDS: *HR* OxyCODONE Immed Rel 5 MG TABLET PO PRN (22:26)
[2016-12-04 05:02] LABS: Basophils % 0.2 %; Eosinophils # 0.2 K/mcL (0.0-0.6); Eosinophils % 4.8 %; Hematocrit 30.3 % (35.3-44.9); Hemoglobin 9.4 g/dL (11.5-15.4); Immature Granulocytes % 0.4 % (0-4); Lymphocytes # 1.1 K/mcL (0.6-4.6); Lymphocytes % 22.8 %; Mean Corpuscular Hemoglobin 30.1 pg (28.0-33.3); Mean Corpuscular Volume 97.1 fL (83.0-100.0); Mean Platelet Volume 9.3 fL (9.4-12.4); Monocytes # 0.7 K/mcL (0.0-1.3); Monocytes % 13.2 %; Neutrophils # 2.9 K/mcL (1.6-8.9); Platelet Count 280 K/mcL (140-400); Red Blood Count 3.12 M/mcL (3.82-4.97); Red Cell Distribution Width 14.5 % (11.5-14.5); Segmented Neutrophils % 58.6 %
[2016-12-04 05:22] LABS: Alanine Aminotransferase 9 Units/L (0-55); Albumin 2.3 g/dL (3.5-5.0); Albumin/Globulin Ratio 0.7 (1.1-2.2); Alkaline Phosphatase 45 Units/L (38-126); Aspartate Amino Transferase 21 Units/L (5-34); BUN/Creatinine Ratio 15 (6-26); Bilirubin,Total 1.5 mg/dL (0.2-1.2); Blood Urea Nitrogen 11 mg/dL (7-20); Calcium 8.5 mg/dL (8.6-10.8); Carbon Dioxide 29 mEq/L (19-29); Chloride 104 mEq/L (98-109); Globulin 3.1 g/dL (2.4-3.5); Glucose 83 mg/dL (70-99); Osmolality,Calculated 287 (280-300); Potassium 3.8 mEq/L (3.5-4.5); Sodium 139 mEq/L (136-145); Total Protein 5.4 g/dL (6.0-8.3); eGFR For African Americans > 60 (> 60); eGFR For Non-African Americans > 60 (> 60)
[2016-12-04] MEDS: Pantoprazole 40 MG VIAL IVP SCH ×2 (06:02→16:43)
[2016-12-04] MEDS: Aspirin 81 MG TAB.CHEW PO SCH (09:03)
[2016-12-04] MEDS: *HR* OxyCODONE Immed Rel 5 MG TABLET PO PRN (16:43)
--- NOTE | 2016-12-04 18:33 | Internal Med Progress Note ---
Date of Encounter: 12/04/16 Time of Encounter: 10:00 - Assessment and plan (1) Atrial fibrillation Current Visit: Yes Status: Acute Assessment and plan: Currently in NSR. Monitor on tele tonight. Anticipate return to SNF tomorrow. Qualifiers: Atrial fibrillation type: paroxysmal Qualified Code(s): I48.0 - Paroxysmal atrial fibrillation (2) Acute blood loss anemia Current Visit: No Status: Acute Assessment and plan: H/H essentially stable today though slightly lower. Reassess in AM. If stable anticipate d/c. (3) Status post right hip replacement Current Visit: Yes Status: Acute Assessment and plan: s/p Right hip replacement 11/26/16 No signs of bleed/hematoma Cont pain control regimen Check venous duplex of lower extremities prior to discharge. (4) Hyperlipidemia Current Visit: No Status: Chronic Qualifiers: Hyperlipidemia type: mixed hyperlipidemia Qualified Code(s): E78.2 - Mixed hyperlipidemia - Subjective Interval history: Ms. Biggs is currently in observation for anemia and parox a fib. Ms. Biggs feels OK at this time. Denies increased pain. No further episodes of a fib. H/H stable today but still slightly lower. No CP or SOB. No fever or chills. - Constitutional Vitals: Temp Pulse Resp BP Pulse Ox 98.5 F 89 16 118/66 94 12/04/16 15:01 12/04/16 15:01 12/04/16 15:01 12/04/16 15:01 12/04/16 15:01 General appearance: Present: cooperative, A&O X 3, answers questions appropriately - Head Head exam: Present: normocephalic - Eye Eye exam: Present: conjuntiva pink - ENT ENT exam: Present: mucous membranes moist - Respiratory Respiratory exam: Present: decreased breath sounds, CTAB. Absent: rhonchi, wheezes - Cardiovascular Cardiovascular exam: Present: RRR. Absent: systolic murmur, tachycardia - GI/Abdominal GI/Abdominal exam: Present: normal bowel sounds, soft. Absent: tenderness - Extremities Exam Extremities exam: Present: warm. Absent: tenderness - Neurological Exam Neurological exam: Present: alert, oriented X3, no focal deficits - Psychiatric Psychiatric exam: Present: normal affect, normal mood - Skin Additional comments: Large ecchymosis on R thigh/buttocks. Ecchymoses on arms as well. Internal Medicine: Result - Labs CBC & Chem 7: 12/04/16 03:54 12/04/16 03:54 Labs: Short CBC 12/04/16 Range/Units 03:54 WBC 5.0 (4.3-11.1) K/mcL Hgb 9.4 L (11.5-15.4) g/dL Hct 30.3 L (35.3-44.9) % Plt Count 280 (140-400) K/mcL Neutrophils # 2.9 (1.6-8.9) K/mcL BMP 12/04/16 03:54 Sodium 139 Potassium 3.8 Chloride 104 Carbon Dioxide 29 BUN 11 Creatinine 0.75 Glucose 83 Calcium 8.5 L Liver Function 12/04/16 Range/Units 03:54 Total Bilirubin 1.5 H (0.2-1.2) mg/dL AST 21 (5-34) Units/L ALT 9 (0-55) Units/L Alkaline Phosphatase 45 (38-126) Units/L Albumin 2.3 L (3.5-5.0) g/dL - ABG Interpretation ABG results: PT/INR, D-dimer PT 10.8 Seconds (9.4-12.1) 12/01/16 05:08 Consult Discharge Plan - Plan Referrals: Patrick Clarke Jr, MD [Primary Care Provider] -
[2016-12-05] MEDS: Pantoprazole 40 MG VIAL IVP SCH (05:18)
[2016-12-05 05:27] LABS: Basophils % 0.2 %; Eosinophils # 0.3 K/mcL (0.0-0.6); Eosinophils % 5.8 %; Hematocrit 30.8 % (35.3-44.9); Hemoglobin 9.9 g/dL (11.5-15.4); Immature Granulocytes % 0.9 % (0-4); Lymphocytes # 0.9 K/mcL (0.6-4.6); Mean Corpuscular HGB Conc 32.1 g/dL (31.6-35.5); Mean Corpuscular Volume 96.6 fL (83.0-100.0); Mean Platelet Volume 9.6 fL (9.4-12.4); Monocytes # 0.6 K/mcL (0.0-1.3); Monocytes % 13.6 %; Neutrophils # 2.8 K/mcL (1.6-8.9); Platelet Count 302 K/mcL (140-400); Red Blood Count 3.19 M/mcL (3.82-4.97); Red Cell Distribution Width 14.6 % (11.5-14.5); Segmented Neutrophils % 60.5 %
[2016-12-05 05:43] LABS: Alanine Aminotransferase 16 Units/L (0-55); Albumin 2.5 g/dL (3.5-5.0); Albumin/Globulin Ratio 0.8 (1.1-2.2); Alkaline Phosphatase 48 Units/L (38-126); Aspartate Amino Transferase 28 Units/L (5-34); BUN/Creatinine Ratio 13 (6-26); Bilirubin,Total 1.3 mg/dL (0.2-1.2); Blood Urea Nitrogen 10 mg/dL (7-20); Calcium 8.6 mg/dL (8.6-10.8); Carbon Dioxide 29 mEq/L (19-29); Chloride 103 mEq/L (98-109); Glucose 96 mg/dL (70-99); Osmolality,Calculated 289 (280-300); Potassium 3.8 mEq/L (3.5-4.5); Sodium 140 mEq/L (136-145); Total Protein 5.5 g/dL (6.0-8.3); eGFR For African Americans > 60 (> 60); eGFR For Non-African Americans > 60 (> 60)
[2016-12-05 07:54] VITALS: BP 114/71
[2016-12-05] MEDS: Aspirin 81 MG TAB.CHEW PO SCH (08:48)
--- NOTE | 2016-12-05 09:13 | Discharge Summary ---
Date of Encounter: 12/05/16 Time of Encounter: 09:08 - Discharge Diagnosis (1) Atrial fibrillation Priority: Primary Status: Acute Qualifiers: Atrial fibrillation type: paroxysmal Qualified Code(s): I48.0 - Paroxysmal atrial fibrillation (2) Acute blood loss anemia Priority: Primary Status: Acute (3) Status post right hip replacement Priority: Secondary Status: Acute (4) Hyperlipidemia Priority: Secondary Status: Chronic Qualifiers: Hyperlipidemia type: mixed hyperlipidemia Qualified Code(s): E78.2 - Mixed hyperlipidemia - Discharge Medications Prescriptions: OxyCODONE Immed Rel [Roxicodone 5 MG] 5 - 10 mg PO Q6HR PRN #10 tablet PRN Reason: Pain Home Medications: Acetaminophen [Tylenol] 325 mg PO Q6HR PRN 11/26/16 [History] Aspirin Enteric Coated [Aspirin EC] 325 mg PO DAILY #21 tablet.dr 11/26/16 [Rx] Calcium Carbonate [Calcium] 600 mg PO DAILY 11/26/16 [History] Docusate Sodium [Colace] 100 mg PO DAILY PRN 11/26/16 [History] Lactobacillus Combination No.8 [Adult Probiotic] 1 cap PO DAILY 11/26/16 [ History] Ubidecarenone/Vit E Acetate [Co Q-10 100 mg Softgel] 1 cap PO DAILY 11/26/16 [ History] Vitamin E Acid Succinate [Vitamin E] 400 units PO DAILY 11/26/16 [History] Ascorbic Acid [Vitamin C] 500 mg PO BIDWM #30 tablet 11/29/16 [Rx] Ferrous Sulfate 325 mg PO BIDWM #30 tablet 11/29/16 [Rx] Metoprolol [Lopressor] 25 mg PO BID tablet 12/05/16 [Rx] OxyCODONE Immed Rel [Roxicodone 5 MG] 5 - 10 mg PO Q6HR PRN #10 tablet 12/05/16 [Rx] Allergies/Adverse Reactions: Allergies Penicillins [PCN] Allergy (Verified 08/30/16 15:01) Rash Tetanus Vaccines and Toxoid Allergy (Verified 08/30/16 15:01) Anaphylaxis Procedures/tests Complete & Pending: Procedures Performed prior 72 hours Category Date Time Status Venous Doppler [EV venous imaging LE RT] Routine Y 12/04/16 11:12 Completed Date of admission: 12/01/16 08:19 Primary care physician: Patrick Clarke Jr, MD Consults: 12/01/16 09:34 Consult to Size Cutter [CONS] Routine Reason for SW Consult: discharge planning Discharging clinician: Ernst Light Anticipated date of discharge: 12/05/16 - Patient Status Disposition: Transfer SNF Condition: Good Overall status at discharge: patient is progressing back to baseline - Discharge Instructions Follow Up With: Patrick Clarke Jr, MD [Primary Care Provider] - Additional Instructions: Follow up with Dr. Jefferson and Dr. Lopez - Diet and Activity Activity: as per physical therapy Diet: advance to your usual diet Hospital course: Ms. Biggs is a 86 year old female with recent R hip fracture s/p RAFFY brought from SNF due to rapid atrial fibrillation. Pt had episode of a fib post op but spontaneously resolved. She was discharged to SNF and developed recurrent episode and brought to ED. Ms. Biggs was placed in observation. Her heartrate improved and ultimately she returned to NSR with PACs. Her electrolytes were monitored. She was noted to be anemic and anticoagulation was held. It was felt this was related to prior bleeding from hip fracture. On 12/05 her H/H was stable. She was in NSR with PACs and PVCs. She was afebrile with a controlled BP. At that time she was felt stable for discharge back to SNF. - Time Spent with Patient Total time spent providing and/or coordinating discharge services: 41min - Constitutional Vitals: Temp Pulse Resp BP Pulse Ox 98.3 F 92 16 114/71 97 12/05/16 07:50 12/05/16 07:50 12/05/16 07:50 12/05/16 07:50 12/05/16 07:50 General appearance: Present: cooperative, A&O X 3, answers questions appropriately - Head Head exam: Present: normocephalic - Eye Eye exam: Present: conjuntiva pink - ENT ENT exam: Present: mucous membranes moist - Respiratory Respiratory exam: Present: CTAB. Absent: rales, rhonchi, wheezes - Cardiovascular Cardiovascular exam: Present: RRR, tachycardia Additional comments: NSR - heartrate about 100. Occ PAC, PVC - GI/Abdominal GI/Abdominal exam: Present: soft. Absent: tenderness - Extremities Exam Extremities exam: Present: warm. Absent: tenderness - Neurological Exam Neurological exam: Present: alert, oriented X3, no focal deficits - Psychiatric Psychiatric exam: Present: normal affect, normal mood - Skin Skin exam: Present: warm. Absent: rash - VTE Documentation of Mechanical Device: Intermittent pneumatic compression device
--- NOTE | 2016-12-05 10:22 | Physician Discharge Referral ---
ExtendedCare Referral Info Transfer To: [facility] Provider in Charge: Ernst Light DO Provider in Charge after Transfer: PCP Institutional Level of Care: Skilled - Diagnosis (1) Atrial fibrillation Priority: Primary Status: Acute (2) Acute blood loss anemia Priority: Primary Status: Acute (3) Status post right hip replacement Priority: Secondary Status: Acute (4) Hyperlipidemia Priority: Secondary Status: Chronic Expected Duration of Placement: Less than 30 days Prognosis: Good Aware of Diagnosis: Patient Aware of Prognosis: Patient - Transfer Medications Prescriptions: OxyCODONE Immed Rel [Roxicodone 5 MG] 5 - 10 mg PO Q6HR PRN #10 tablet PRN Reason: Pain Home Medications: Acetaminophen [Tylenol] 325 mg PO Q6HR PRN 11/26/16 [History] Aspirin Enteric Coated [Aspirin EC] 325 mg PO DAILY #21 tablet. 11/26/16 [Rx] Calcium Carbonate [Calcium] 600 mg PO DAILY 11/26/16 [History] Docusate Sodium [Colace] 100 mg PO DAILY PRN 11/26/16 [History] Lactobacillus Combination No.8 [Adult Probiotic] 1 cap PO DAILY 11/26/16 [ History] Ubidecarenone/Vit E Acetate [Co Q-10 100 mg Softgel] 1 cap PO DAILY 11/26/16 [ History] Vitamin E Acid Succinate [Vitamin E] 400 units PO DAILY 11/26/16 [History] Ascorbic Acid [Vitamin C] 500 mg PO BIDWM #30 tablet 11/29/16 [Rx] Ferrous Sulfate 325 mg PO BIDWM #30 tablet 11/29/16 [Rx] Metoprolol [Lopressor] 25 mg PO BID tablet 12/05/16 [Rx] OxyCODONE Immed Rel [Roxicodone 5 MG] 5 - 10 mg PO Q6HR PRN #10 tablet 12/05/16 [Rx] Allergies/Adverse Reactions: Allergies Penicillins [PCN] Allergy (Verified 08/30/16 15:01) Rash Tetanus Vaccines and Toxoid Allergy (Verified 08/30/16 15:01) Anaphylaxis - Respiratory Orders None Smoking Cessation: Smoking cessation has been advised. For more information, call the [place] Tobacco Quit Line at 6-607-SYUF-NOW. - Ancillary Orders May use pressure relief devices daily prn, May go on PAT w/family/respon republican w /meds at nurse discretion PRN, May consult with Dentist, Button Buttonhole Marker, Teaching Artist PRN - Advance Directives Code Status: Full Code - History and Physical History/Physical reviewed & approved w/add comments: No significant change - Mobility Orders Ambulate - Rehabiliation Orders Rehab Potential: Good Rehab Orders: Evaluation for Physical Therapy, Evaluation for Occupational Therapy - Treatments Skin tear care topically daily PRN per policy, May check for fecal impaction rectally daily PRN, Fleet enema rectally every other day PRN cleansing purposes - Diet Orders No Added Salt (STACIE) CERTIFICATION: I certify that the transfer of the above named patient to an Extended Care Facility is necessary for the continuing treatment of the diagnosis listed. The above information is true and accurate reflection of patient's current condition. Confidential - Redisclosure prohibited without a patient's written consent.
--- NOTE | 2016-12-05 18:38 | Venous Imaging Report ---
LE Venous Duplex Patient Name:Nancy Biggs Order Number:[id number] Procedure Date:12/04/2016 Date:1930ge:86 yrs Gender:Female Location:[facility] Room #: 2NE24 School Bus Attendant:Cristine Parr Referring MD:Shaheed Vargas DO crop production advisor:Patrick Clarke MD Reading MD:Mono Estrada MD , FACS Primary Indications:r/o DVT Secondary Indications: Risk Factors Yes/No Recent Surgery Impressions: Right lower extremity: normal superficial and deep exam. Left lower extremity: normal contralateral exam. Findings Venous Duplex Results: Right: The right posterior tibial and right peroneal veins were not well visualized. Prior Study: No prior study available for comparison. Lower Extremity Venous Duplex Side Vein Compress Spontaneous Flow Augment Diameter (cm) Depth (cm) Right Distal Iliac Normal Yes Phasic Yes Right Common Femoral Normal Yes Phasic Yes Right Superficial Femoral Normal Yes Phasic Yes Right Popliteal Normal Yes Phasic Yes Right Posterior Tibial Normal Yes Phasic Yes Right Peroneal Normal Yes Phasic Yes Right Saphenofemoral [place] Normal Yes Phasic Yes Right Great Saphenous Normal Yes Phasic Yes Right Lesser Saphenous Normal Yes Phasic Yes Left Common Femoral Normal Yes Phasic Yes Updated by Mono Estrada MD, FACS on 12/05/2016 6:33:07 PM Mono Estrada MD electronically signed on 12/05/2016 6:34:21 PM with status of Final
== END 2016-12-05 13:20 ==
LOC: 2NENU 04:52 → EMEROO 04:52 → SUATTDRO 08:19 → 2NENU 08:47
PROVIDERS: ADMIT Internal Medicine; ATTEND Internal Medicine